=== PATIENT | female | born 1950 | race Hispanic/Latino ===

== ENCOUNTER 2018-01-13 12:18 | Emergency (ER) | payer MEDICARE, MEDICAID ==
[2018-01-13 13:19] LABS: Hemoglobin 12.3 g/dL (12.0-16.0); Mean Corpuscular HGB CONC 32.7 g/dL (32.0-36.0); Mean Corpuscular Hemoglobin 25.9 pg (27.0-31.0); Mean Corpuscular Volume 79.2 fL (78.0-98.0); Mean Platelet Volume 9.1 fL (7.4-10.4); Platelet Count 252 thou/uL (130-400); RBC Distribution Width 16.4 % (11.5-14.5); Red Blood Cell (RBC) Count 4.75 mill/uL (4.20-5.40); White Blood Cell (WBC) Count 13.8 thou/uL (4.8-10.8)
[2018-01-13] MEDS ORDERED: ISOVUE-370 76%-LOCM 1 ML ONE (13:33)
[2018-01-13 13:34] LABS: ALT (SGPT) 51 U/L (8-55); AST (SGOT) 55 U/L (5-34); Albumin 4.1 g/dL (3.4-4.8); Alkaline Phosphatase 84 U/L (40-150); Anion Gap 13 mmol/L (10-20); BUN (Urea Nitrogen) 22 mg/dL (9.8-20.1); Bilirubin, Total 0.5 mg/dL (0.2-1.2); CK (CPK) 53 U/L (29-168); Calc. Creatinine Clearance 0 mL/min (70-130); Calcium 9.1 mg/dL (7.8-10.44); Carbon Dioxide 21 mmol/L (23-31); Chloride 106 mmol/L (98-107); Estimated GFR-MDRD 60; Globulin 4.2 g/dL (2.4-3.5); Glucose 126 mg/dL (80-115); Lipase 21 U/L (8-78); Potassium 4.3 mmol/L (3.5-5.1); Protein, Total 8.3 g/dL (6.0-8.3); Sodium 136 mmol/L (136-145)
[2018-01-13 13:40] LABS: Anisocytosis SLIGHT = 6-15 cells (100X) (0-5/hpf); Eosinophils 1 % (0-10); Large Platelets SLIGHT; Lymphocytes 18 % (21-51); MDiff Complete? YES; Monocytes 3 % (0-10); Neutrophil 77 % (42-75); PLT Morphology Comment Appears Adequate; Polychromasia SLIGHT = 2-3 cells (100X) (0-2/hpf); Reactive Lymphocytes 1 % (0-10)
[2018-01-13 14:05] LABS: Bilirubin Small (Negative); Blood, Urine Negative (Negative); Clarity CLEAR (Clear); Glucose, Urine (Dipstick) Negative (Negative); Leukocyte Small (Negative); Nitrite Negative (Negative); Protein, Urine (Dipstick) Negative (Neg-Trace); Specific Gravity, Urine 1.026 (1.002-1.036); Urobilinogen 0.2 mg/dL (0.2-1.0); pH, Urine 5.5 (5.0-9.0)
[2018-01-13 14:09] LABS: Bacteria/HPF Rare-Few HPF (None Seen); Hyaline Casts/LPF 4-6 HYALINE CAST LPF (0-3 Hyaline); Pathc Cast-AUWi Flag 0.43 (0-2.49); RBC/HPF 0-3 HPF (0-3)
--- NOTE | 2018-01-13 14:32 | CT ---
CT ABDOMEN AND PELVIS WITH IV CONTRAST: Date: 01/13/18 HISTORY: Diarrhea. Abdominal pain. FINDINGS: There are dependent changes at the lung bases. The liver demonstrates fatty infiltration without focal mass or abnormal biliary ductal dilatation. N o calcified gallstones are seen. The spleen, pancreas, adrenal glands, and kidneys are normal. No free air, free fluid, or lymphadenopathy seen in the abdomen or pelvis. There are vascular calcifi cations without evidence of aneurysmal dilatation of the abdominal aorta. Uterus is present. The smal l bowel loops are not abnormally dilated. There are degenerative changes in the spine. The patient is post appendectomy. IMPRESSION: Fatty liver. POS: [facility]
== END 2018-01-13 15:08 | disposition home or self-care (01) ==
LOC: ERS 12:18
DX: R19.7 Diarrhea, unspecified (principal); R10.9 Unspecified abdominal pain; E11.9 Type 2 diabetes mellitus without complications; E03.9 Hypothyroidism, unspecified; I10 Essential (primary) hypertension; F32.9 Major depressive disorder, single episode, unspecified; Z79.899 Other long term (current) drug therapy; Z79.84 Long term (current) use of oral hypoglycemic drugs
CPT/HCPCS: 36415; 74177; 80053; 81003; 81015; 82550; 83605; 83690; 85025; 87077; 87086; 87186

== ENCOUNTER 2019-01-18 11:46 | Emergency (ER) | payer MEDICAID, MEDICARE ==
[2019-01-18] MEDS ORDERED: diphenhydrAMINE 50 MG/ML VIAL ONE (13:09)
[2019-01-18] MEDS ORDERED: Acetaminophen 500 MG TAB ONE (13:09)
[2019-01-18] MEDS ORDERED: Metoclopramide HCl 10 MG/2 ML VIAL ONE (13:09)
--- NOTE | 2019-01-18 13:11 | CT ---
CT OF HEAD NONCONTRAST: COMPARISON: 03/01/2011. INDICATION: Pain. FINDINGS: Stable arachnoid cyst of the right posterior cranial fossa. Mild chronic microvascular ischemic dise ase of the cerebral white matter. No acute intracranial hemorrhage or mass effect. There is some paranasal mucosal thickening. IMPRESSION: Stable head CT. POS: [facility]
== END 2019-01-18 14:40 | disposition home or self-care (01) ==
LOC: ERS 11:46
DX: R51 Headache (principal); E11.9 Type 2 diabetes mellitus without complications; E03.9 Hypothyroidism, unspecified; I10 Essential (primary) hypertension; M19.90 Unspecified osteoarthritis, unspecified site; F32.9 Major depressive disorder, single episode, unspecified; Z79.84 Long term (current) use of oral hypoglycemic drugs; Z79.899 Other long term (current) drug therapy
CPT/HCPCS: 70450; 96361; 96365; 96375; J1200; J2765

== ENCOUNTER 2019-03-08 16:07 | Inpatient (IN) | payer MEDICARE, MEDICAID ==
[~2019-03-08 16:07] MED LIST: ISOVUE-370 76%-LOCM 1 ML ONE
[2019-03-08] MEDS ORDERED: Morphine 4 MG/ML VIAL ONE (17:13)
[2019-03-08 17:24] LABS: Hemoglobin 12.3 g/dL (12.0-16.0); Mean Corpuscular HGB CONC 33.2 g/dL (32.0-36.0); Mean Corpuscular Hemoglobin 26.8 pg (27.0-31.0); Mean Corpuscular Volume 80.6 fL (78.0-98.0); Mean Platelet Volume 9.9 fL (7.4-10.4); Platelet Count 216 thou/uL (130-400); RBC Distribution Width 14.4 % (11.5-14.5); Red Blood Cell (RBC) Count 4.61 mill/uL (4.20-5.40); White Blood Cell (WBC) Count 17.4 thou/uL (4.8-10.8)
[2019-03-08 17:38] LABS: Band 9 % (5-11); Eosinophils 1 % (0-10); Lymphocytes 12 % (21-51); MDiff Complete? YES; Monocytes 3 % (0-10); Neutrophil 75 % (42-75); Platelet Morphology Comment Appears Adequate; RBC Morphology Normal
[2019-03-08 17:39] LABS: ALT (SGPT) 31 U/L (8-55); AST (SGOT) 22 U/L (5-34); Albumin 4.4 g/dL (3.4-4.8); Alkaline Phosphatase 142 U/L (40-110); Anion Gap 14 mmol/L (10-20); BUN (Urea Nitrogen) 13 mg/dL (9.8-20.1); Bilirubin, Total 0.3 mg/dL (0.2-1.2); Calc. Creatinine Clearance 0 mL/min (70-130); Calcium 9.5 mg/dL (7.8-10.44); Carbon Dioxide 24 mmol/L (23-31); Chloride 97 mmol/L (98-107); Estimated GFR-MDRD 60; Globulin 4.2 g/dL (2.4-3.5); Glucose 218 mg/dL (80-115); Lipase 34 U/L (8-78); Potassium 3.9 mmol/L (3.5-5.1); Protein, Total 8.6 g/dL (6.0-8.3); Sodium 131 mmol/L (136-145)
--- NOTE | 2019-03-08 17:41 | RAD ---
Acute abdomen series CLINICAL HISTORY: Pain FINDINGS: No lobar consolidation, or effusion. There is enlargement of cardiac silhouette and pulmona ry vasculature. No free air. Nonspecific bowel gas pattern. There is osseous degenerative change. IMPRESSION: No acute abnormality identified. Evidence of CHF. Correlate clinically Transcribed Date/Time: 03/08/2019 6:10 PM
[2019-03-08] MEDS ORDERED: Acetaminophen 500 MG TAB ONE (18:01)
[2019-03-08 18:12] LABS: Bacteria/HPF 4+ HPF (None Seen); Bilirubin Negative (Negative); Blood, Urine Negative (Negative); Clarity Clear (Clear); Glucose, Urine (Dipstick) Normal (Negative); Leukocyte 75 Leu/uL (Negative); Nitrite Negative (Negative); Protein, Urine (Dipstick) 100 mg/dL (Neg-Trace); RBC/HPF 0-3 HPF (0-3); Urobilinogen Normal mg/dL (Less than 2); WBC/HPF 21-50 HPF (0-3)
[2019-03-08 18:27] LABS: T4 6.2 ug/dL (4.87-11.72); Thyroid Stimulating Hormone 2.7122 uIU/mL (0.35-4.94)
[2019-03-08] MEDS ORDERED: Ketorolac Tromethamine 30 MG/ML VIAL ONE (18:41)
--- NOTE | 2019-03-08 19:17 | CT ---
EXAM: Abdomen and pelvic CT scan with contrast: HISTORY: Pain COMPARISON: None FINDINGS: Bibasilar atelectasis Liver: Hepatic steatosis Gallbladder: Unremarkable. Pancreas: Unremarkable Spleen: Unremarkable. Adrenal glands: Unremarkable. Kidneys: No renal calculus or acute obstruction. No solid or cystic mass. Bowel: Wall prominence of the colon with mild pericolic fat stranding. There is limited assessment of the bowel without enteric contrast. No small bowel obstruction Urinary Bladder: The urinary bladder is unremarkable. Adenopathy: No adenopathy within the abdomen or pelvis. Free Air: No free air. Ascites: No ascites. Scattered atherosclerotic vascular calcification. Osseous structures: No acute osseous abnormalities. IMPRESSION: Findings indicative of colitis although limited by technique. This may relate to infectious inflammat ory or ischemic etiologies. Recommend clinical correlation. Hepatic steatosis Additional details are described above. Transcribed Date/Time: 03/08/2019 7:29 PM
--- NOTE | 2019-03-08 19:33 | ULT ---
Gallbladder ultrasound: Multiple grayscale images of right upper quadrant obtained according to protocol. INDICATION: Pain FINDINGS: Liver: Hepatic steatosis. Gallbladder: Normal Gallbladder wall: Normal. Christian's Sign: Negative Common bile duct is normal. Ascites: None IMPRESSION: Normal gallbladder. Hepatic steatosis
[2019-03-08] MEDS ORDERED: cefTRIAXone\\ROCEPHIN 1 GM VIAL ONE (19:58)
[2019-03-08] MEDS ORDERED: Promethazine HCl 25 MG/ML VIAL ONE (21:20)
[2019-03-08] MEDS ORDERED: Magnesium 2 GM/50 ML BAG (IN WATER) ONE (21:27)
[2019-03-08] MEDS ORDERED: Ondansetron ODT 4 MG TAB SL PRN (22:32)
[2019-03-08] MEDS ORDERED: Ondansetron PF 4 MG/2 ML Vial IVP PRN (22:32)
[2019-03-08] MEDS ORDERED: Sodium Chloride 0.45% 1,000 ML IV SCH (22:32)
[2019-03-08 22:57] VITALS: BMI 38.0
[2019-03-08 23:51] LABS: Lactic Acid 3.8 mmol/L (0.5-2.2)
[2019-03-08] MEDS ORDERED: Magnesium 2 GM/50 ML 2 GM in Premix Bag 1 BAG IVPB SCH (23:59)
[2019-03-09] MEDS ORDERED: Dextrose 5% in Water 1,000 ML IV PRN (02:29)
[2019-03-09] MEDS ORDERED: Dextrose 50% Abboject 50 ML SYRINGE SLOW IVP PRN (02:29)
[2019-03-09] MEDS ORDERED: Insulin Regular 300 UNITS/3 ML VIAL SC PRN (02:29)
[2019-03-09] MEDS ORDERED: Calcium Carbonate 500 MG ChewTAB PO PRN (02:30)
[2019-03-09] MEDS ORDERED: Acetaminophen 325 MG TAB PO PRN (02:30)
[2019-03-09] MEDS ORDERED: Ondansetron PF 4 MG/2 ML Vial IVP PRN (02:30)
[2019-03-09] MEDS ORDERED: Ondansetron ODT 4 MG TAB PO PRN (02:30)
[2019-03-09] MEDS ORDERED: Morphine 2 MG/ML SYRINGE SLOW IVP PRN (02:33)
--- NOTE | 2019-03-09 03:04 | HP ---
The patient was seen and examined on March 08, 2019. PRIMARY CARE PHYSICIAN: [facility]. CHIEF COMPLAINT: Abdominal pain with diarrhea of 2 days' duration. HISTORY OF PRESENT ILLNESS: The patient is a 68-year-old female with hypertension and diabetes mellitus type 2, presented to the emergency room with above complaints. Over the last 2 days, the patient developed fever along with abdominal pain, nausea, vomiting, as well as diarrhea. The abdominal pain was more or less in the lower quadrant, intermittent, moderate to severe in intensity without any aggravating or relieving factor. She had 2 episodes of vomiting which contained food she had eaten. The diarrhea was watery. She had several episodes of diarrhea. She also had fever. The symptoms got worse for which she presented to the emergency room. She took some [id number] "pink medicine" without much relief. In the emergency room, her vital signs showed temperature of 102.7, respirations 24, pulse rate of 112 with a blood pressure of 121/79, O2 saturation 94% on room air. Lactic acid was elevated. She received IV ceftriaxone, magnesium, Phenergan, Toradol, morphine, and Tylenol in the emergency room. PAST MEDICAL HISTORY: 1. Hypertension. 2. Diabetes mellitus, type 2. 3. Obesity with a BMI of 38.1. 4. Hypothyroidism. 5. Depression. PAST SURGICAL HISTORY: 1. Appendectomy. 2. . 3. Renal stone removal. 4. Right knee surgery. ALLERGIES: NO KNOWN DRUG ALLERGIES. CURRENT HOME MEDICATIONS: Family to provide accurate list of medication. She cannot recall any of her home medications. SOCIAL HISTORY: The patient currently lives at home with her family. No current use of smoking, alcohol, or drug use. She is full code and makes her own decision with the help of her family. FAMILY HISTORY: Positive for diabetes mellitus type 2 and hypertension. REVIEW OF SYSTEMS: All other review of systems were reviewed and were found negative. PHYSICAL EXAMINATION: VITAL SIGNS: As discussed above. GENERAL: A 68-year-old female, in mild distress due to abdominal discomfort. HEENT: Head, atraumatic and normocephalic. Sclerae are anicteric. Dry mucous membranes. No oral lesion. NECK: Supple. No JVD appreciated. No carotid bruit. LUNGS: Clear to auscultation bilaterally. No wheezing, rales, or rhonchi. HEART: S1 and S2 present. Regular rate and rhythm. Tachycardic. No rubs or gallops. ABDOMEN: Soft. There is diffuse tenderness mainly in the lower quadrant. No rebound or guarding. No costovertebral angle tenderness. EXTREMITIES: No edema or calf tenderness. NEUROLOGIC: Grossly nonfocal, moves all 4 extremities. PSYCHIATRIC: Alert, awake, oriented x3. SKIN: Warm and dry. LYMPH NODES: No palpable lymph nodes in the neck. Peripheral, vascular, radial pulses palpable bilaterally. MUSCULOSKELETAL: No joint swelling or tenderness. LABORATORY FINDINGS: WBC of 17.4 with hemoglobin 12.3, hematocrit 37.1. Sodium 131, potassium 3.9, chloride 97, bicarb 24, BUN 13, creatinine 0.93, glucose of 218, magnesium 1.0. TSH was normal. Urinalysis showed 21 to 50 wbc's with 4+ bacteria. Influenza screen was negative. CT scan of the abdomen and pelvis by my review showed colitis. Please note that the CT was done without oral contrast. Right upper quadrant ultrasound was negative for acute gallbladder pathology. Lactic acid repeat was 3.8. EKG by my review showed sinus tachycardia with heart rate of [address]-T wave changes. IMPRESSION: 1. Severe sepsis secondary to colitis, suspected infectious. 2. Lactic acidosis secondary to sepsis. 3. Diabetes mellitus, type 2. 4. Hypertension. 5. Hypothyroidism. 6. Depression, mild, stable. 7. Obesity with a BMI of 38.1. 8. Hyponatremia with sodium 131. 9. Chronic kidney disease, stage 2. 10. Hypomagnesemia. 11. Urinary tract infection. PLAN: The patient will be monitored on the medical floor. We will continue IV hydration. Stool workup including C diff will be ordered. We will replace magnesium. We will add Flagyl and ceftriaxone. Consult Gastroenterology. Recheck labs in a.m. Walking program. DVT prophylaxis with SCDs. Hold Lovenox for now due to colitis with potential of GI bleeding. We will also add urine culture due to suspected UTI. Plan of care was discussed with the patient in detail. She stated understanding. The patient will require 2 to 3 days for stabilization. Job ID: [id number]
[2019-03-09] MEDS: metroNIDAZOLE 500 MG in Premix Bag 1 BAG IVPB SCH ×3 (03:23→20:18)
[2019-03-09] MEDS: Sodium Chloride 0.9% 1,000 ML IV SCH ×4 (03:24→23:04)
[2019-03-09] MEDS: Insulin Regular 300 UNITS/3 ML VIAL SC PRN ×2 (05:01→13:09)
[2019-03-09 05:53] LABS: Lactic Acid 2.2 mmol/L (0.5-2.2)
[2019-03-09 06:00] LABS: ALT (SGPT) 20 U/L (8-55); AST (SGOT) 14 U/L (5-34); Albumin 3.2 g/dL (3.4-4.8); Alkaline Phosphatase 74 U/L (40-110); Anion Gap 9 mmol/L (10-20); BUN (Urea Nitrogen) 12 mg/dL (9.8-20.1); Bilirubin, Total 0.3 mg/dL (0.2-1.2); Calc. Creatinine Clearance 100 mL/min (70-130); Calcium 7.7 mg/dL (7.8-10.44); Carbon Dioxide 24 mmol/L (23-31); Chloride 103 mmol/L (98-107); Estimated GFR-MDRD 68; Globulin 3.2 g/dL (2.4-3.5); Glucose 215 mg/dL (80-115); Magnesium 1.9 mg/dL (1.6-2.6); Phosphorus 2.6 mg/dL (2.3-4.7); Potassium 3.9 mmol/L (3.5-5.1); Protein, Total 6.4 g/dL (6.0-8.3); Sodium 132 mmol/L (136-145)
[2019-03-09 06:12] LABS: Band 23 % (5-11); Hemoglobin 10.2 g/dL (12.0-16.0); Lymphocytes 11 % (21-51); MDiff Complete? YES; Mean Corpuscular HGB CONC 33.5 g/dL (32.0-36.0); Mean Corpuscular Hemoglobin 26.7 pg (27.0-31.0); Mean Corpuscular Volume 79.7 fL (78.0-98.0); Mean Platelet Volume 10.2 fL (7.4-10.4); Monocytes 6 % (0-10); Neutrophil 60 % (42-75); Platelet Count 181 thou/uL (130-400); Platelet Morphology Comment Appears Adequate; RBC Distribution Width 14.4 % (11.5-14.5); White Blood Cell (WBC) Count 15.8 thou/uL (4.8-10.8)
[2019-03-09] MEDS: Famotidine 20 MG TAB PO SCH ×2 (08:55→20:19)
[2019-03-09] MEDS: Saccharomyces boulardii 250 MG CAP PO SCH (08:55)
[2019-03-09] MEDS ORDERED: cefTRIAXone\\ROCEPHIN 2 GM in Sodium Chloride 0.9% 100 ML IVPB SCH (09:00)
[2019-03-09] MEDS ORDERED: Sodium Chloride 0.9% 500 ML IV SCH (12:15)
--- NOTE | 2019-03-09 19:07 | PDOC.HOSPP ---
- Subjective Encounter Date: 03/09/19 Encounter Time: 11:30 Subjective: pt up in bed still is having abd pain and diarrhea but has improved since admission - Objective Vital Signs & Weight: Vital Signs (12 hours) Temp Pulse Resp BP Pulse Ox 03/09/19 17:35 94 L 03/09/19 16:32 98.4 F 97 18 96/62 03/09/19 11:26 98.9 F 88 20 98/64 94 L 03/09/19 08:00 92 L 03/09/19 07:39 98.9 F 92 22 H 102/65 Weight Weight 215 lb I&O: 03/08/19 03/09/19 03/10/19 06:59 06:59 06:59 Intake Total 1600 1040 Balance 1600 1040 Result Diagrams: 03/09/19 04:51 03/09/19 04:51 Additional Labs: Accuchecks 03/09/19 03/09/19 11:32 04:03 POC Glucose 219 H 218 H Hospitalist ROS - Review of Systems Respiratory: denies: cough, dry, shortness of breath, hemoptysis, SOB with excertion, pleuritic pain, sputum, wheezing, other Cardiovascular: denies: chest pain, palpitations, orthopnea, paroxysmal noc. dyspnea, edema, light headedness, other Gastrointestinal: reports: abdominal pain, diarrhea - Medication Medications: Active Medications Generic Name Dose Route Start Last Admin Trade Name Freq PRN Reason Stop Dose Admin Famotidine 20 mg 03/09/19 09:00 03/09/19 08:55 Pepcid PO 20 mg BID ASTER Administration Sodium Chloride 1,000 mls @ 150 mls/hr 03/09/19 02:30 03/09/19 17:28 Normal Saline 0.9% IV 1,000 mls .[id number] ASTER Administration Ceftriaxone Sodium 2 gm/ 100 mls @ 200 mls/hr 03/09/19 09:00 03/09/19 08:53 Sodium Chloride IVPB 100 mls DAILY ASTER Administration Metronidazole 500 mg/ Device 100 mls @ 100 mls/hr 03/09/19 04:00 03/09/19 13: 04 IVPB 100 mls 0400,1200,2000 ASTER Administration Insulin Human Regular 0 units 03/09/19 02:29 03/09/19 13:09 Humulin R SC 2 unit .MILD SLIDING SCALE PRN Administration Mild Correctional Scale Saccharomyces Boulardii 250 mg 03/09/19 09:00 03/09/19 08:55 Florastor PO 250 mg DAILY ASTER Administration Sodium Chloride 10 ml 03/09/19 09:00 03/09/19 08:55 Flush - Normal Saline IVF 10 ml Q12HR ASTER Administration Sodium Chloride 10 ml 03/08/19 22:33 03/08/19 22:55 Flush - Normal Saline IVF 10 ml PRN PRN Administration Saline Flush - Exam Neck: negative: supple, symmetric, no JVD, no thyromegaly, no lymphadenopathy, no carotid bruit, JVD Heart: negative: RRR, no murmur, no gallops, no rubs, normal peripheral pulses, irregular, diminshed peripheral pulses, murmur present, II/IV, III/IV Gastrointestinal: soft, normal bowel sounds Gastrointestinal - other findings: mild pain on palpation of abdomen area Hosp A/P (1) Sepsis Code(s): A41.9 - SEPSIS, UNSPECIFIED ORGANISM Status: Acute (2) Colitis Code(s): K52.9 - NONINFECTIVE GASTROENTERITIS AND COLITIS, UNSPECIFIED Status : Acute (3) UTI (urinary tract infection) Status: Acute (4) Diabetes Code(s): E11.9 - TYPE 2 DIABETES MELLITUS WITHOUT COMPLICATIONS Status: Acute - Plan will continue abx for now, will check bnp. gi to see pt. lactic acid improved. will change her abx to cipro and continue flagyl.
[2019-03-09] MEDS: traZODone HCl 50 MG TAB PO SCH (20:19)
[2019-03-09] MEDS ORDERED: Prevnar 13-Val Conj/PF 0.5 ML SYRINGE IM ONE (21:00)
[2019-03-09] MEDS ORDERED: FLU VACC TS2019-20(65YR UP)/PF 180 MCG/0.5 ML SYRINGE IM ONE (21:00)
--- NOTE | 2019-03-10 00:56 | CON ---
DATE OF CONSULTATION: 03/09/2019 REASON FOR CONSULTATION: Abdominal pain, diarrhea and abnormal GI imaging. CONSULTING PROVIDER: Ramírez Dwyer MD. HISTORY OF PRESENT ILLNESS: The patient is a 68-year-old female with past medical history of hypertension, diabetes, hypothyroidism, depression, obesity, osteoarthritis, and nephrolithiasis presenting with complaints of diarrhea and abdominal pain. She states that she was in her usual state of health until 3 days ago when she had the acute onset of diarrhea characterized as having approximately 6-7 liquid bowel movements per day over the last 2 to 3 days with no difficulty with defecation. She denies any associated hematochezia or melena, although she may have had a possible black stool on the 1st day that has not since recurred. She adds that this occurred recently after the ingestion of both Chorizo and watermelon with the appearance of the symptoms within 6 to 8 hours afterwards. This also coincides with the occurrence of increased periumbilical abdominal pain characterized as a "moving type pain" is intermittent and will last for 5 minutes in duration and occurs multiple times during the day and reaches a severity of 5/10. The pain is worse with eating either solids or liquids, not having a bowel movement and increased physical activity and better with having a bowel movement, associated symptoms include headache, subjective fevers and chills, increased neck pain, increased left shoulder pain and nausea and vomiting with nonbloody emesis. With the worsening of her symptoms including diarrhea, it prompted her to seek healthcare assistance at the [facility] ER. She was ultimately admitted to the hospital for workup related to abnormal GI imaging and the diarrhea. Currently, she denies any melena, hematochezia, hematemesis, dysphagia, odynophagia, or weight loss. REVIEW OF SYSTEMS: A 10 category review of systems was obtained with all responses negative except for the pertinent positives as listed in HPI. PAST MEDICAL HISTORY: As per HPI. PAST SURGICAL HISTORY: Appendectomy, right knee surgery, section, and renal stone extraction. FAMILY HISTORY: Denies any GI malignancies. SOCIAL HISTORY: Denies any tobacco, alcohol, or illicit drug use. OUTPATIENT MEDICATIONS: Reviewed although may be incomplete. ALLERGIES: NO KNOWN DRUG ALLERGIES. PHYSICAL EXAMINATION: VITAL SIGNS: Temperature 99.7, pulse 100, blood pressure 108/70, respiratory rate 16, saturating 94% on room air. GENERAL: The patient was lying in bed, in no acute distress. Alert and oriented x4, Tristanian-speaking only. HEENT: Normocephalic, atraumatic. NECK: Supple. No JVD or scleral icterus noted. CARDIOVASCULAR: Regular rate and rhythm with no discernible murmurs, gallops, or rubs. RESPIRATORY: Clear to auscultation bilaterally with no discernible wheezes or rales, although did experience some decreased inspiratory efforts. ABDOMEN: Normoactive bowel sounds, soft, nondistended, tenderness to palpation to both light and deep palpation in all abdominal quadrants. EXTREMITIES: No cyanosis, clubbing, or edema. LABORATORY DATA: CBC with a white blood cell count of 15.8, hemoglobin 10.2, hematocrit 30.3, platelets 181. Chemistry with a sodium of 132, potassium 3.9 chloride 103, CO2 of 24, BUN 12, creatinine 0.84, glucose 215, AST 14, ALT 20, alkaline phosphatase 74, total bilirubin 0.3, albumin 3.2. Infectious stool studies have been negative for Clostridium difficile, Campylobacter and E. coli thus far with stool culture still pending. IMAGING DATA: Right upper quadrant ultrasound obtained on March 08, 2019, showed primarily hepatic steatosis, where as a CT of the abdomen and pelvis on March 08, 2019, showed wall prominence of the colon with mild pericolonic fat stranding that seem to be related to the entire colon, but was limited in terms of its lack of enteric contrast. ASSESSMENT AND PLAN: The patient is a 68-year-old female with past medical history of hypertension, diabetes, hypothyroidism, depression, obesity, osteoarthritis, and renal stones, presenting with nausea, vomiting, fevers, diarrhea and abnormal imaging concerning for infectious colitis. Infectious colitis. The patient is presenting with the acute onset of nausea, vomiting, diarrhea, and abdominal pain shortly after the ingestion of both Chorizo and watermelon with imaging showing wall thickening presumably of the entire colon. On physical examination, she is diffusely tender to palpation and on labs is noted to have an elevated white blood cell count in addition to borderline fever on examination of vital signs. At this point with the acute onset of her diarrhea and infectious etiology is most likely despite the fact that she has had negative stool studies thus far (the sensitivity and specificity of stool studies are approximately 70%). At this time, the differential could include infectious etiology, ischemic colitis (less likely if the entire colon is involved), inflammatory bowel disease, mesenteric ischemia (less likely) and/or GI neoplasm (much less likely, if entire colon is involved). RECOMMENDATIONS: 1. We would continue with more conservative management with IV fluid hydration support and pain control per primary team. 2. We would continue with antibiotic therapy as you are doing for the next 24 hours and if the patient does not continue to show any improvement, would consider both EGD and colonoscopy at that time. 3. No repeat stool studies are indicated at this time given probable sterilization of the stool, now that antibiotics have been given. 4. We would continue with aggressive antiemetic support. 5. We will continue to follow. Please call with any questions. Job ID: [id number]
[2019-03-10] MEDS: metroNIDAZOLE 500 MG in Premix Bag 1 BAG IVPB SCH ×3 (03:29→19:24)
[2019-03-10 06:01] LABS: #Eosinphils 0.2 thou/uL (0.0-0.7); #Lymphocytes 2.5 thou/uL (1.20-3.40); #Monocytes 0.5 thou/uL (0.11-0.59); #Neutrophils 5.9 thou/uL (1.40-6.50); %Basophils 0.2 % (0.0-1.0); %Eosinophils 1.7 % (0.0-10.0); %Lymphocytes 27.7 % (21.0-51.0); %Monocytes 5.6 % (0.0-10.0); %Neutrophils 64.7 % (42.0-75.0); Hemoglobin 9.7 g/dL (12.0-16.0); Mean Corpuscular HGB CONC 33.5 g/dL (32.0-36.0); Mean Corpuscular Volume 80.7 fL (78.0-98.0); Mean Platelet Volume 10.1 fL (7.4-10.4); Platelet Count 159 thou/uL (130-400); RBC Distribution Width 14.5 % (11.5-14.5); White Blood Cell (WBC) Count 9.1 thou/uL (4.8-10.8)
[2019-03-10] MEDS: Sodium Chloride 0.9% 1,000 ML IV SCH ×4 (06:04→19:24)
[2019-03-10 06:24] LABS: ALT (SGPT) 17 U/L (8-55); AST (SGOT) 20 U/L (5-34); Alkaline Phosphatase 66 U/L (40-110); Anion Gap 10 mmol/L (10-20); BUN (Urea Nitrogen) 6 mg/dL (9.8-20.1); Bilirubin, Total 0.2 mg/dL (0.2-1.2); Calc. Creatinine Clearance 112 mL/min (70-130); Calcium 7.3 mg/dL (7.8-10.44); Carbon Dioxide 20 mmol/L (23-31); Chloride 109 mmol/L (98-107); Estimated GFR-MDRD 77; Globulin 3.3 g/dL (2.4-3.5); Glucose 189 mg/dL (80-115); Magnesium 1.6 mg/dL (1.6-2.6); Potassium 3.7 mmol/L (3.5-5.1); Protein, Total 6.3 g/dL (6.0-8.3); Sodium 135 mmol/L (136-145)
[2019-03-10] MEDS: FLUoxetine HCl 20 MG CAP PO SCH (09:07)
[2019-03-10] MEDS: Famotidine 20 MG TAB PO SCH ×2 (09:07→20:56)
[2019-03-10] MEDS: Saccharomyces boulardii 250 MG CAP PO SCH (09:07)
[2019-03-10] MEDS: Insulin Regular 300 UNITS/3 ML VIAL SC PRN (12:51)
--- NOTE | 2019-03-10 13:19 | EKG ---
Test Reason : Blood Pressure : / mmHG Vent. Rate : 121 BPM Atrial Rate : 121 BPM P-R Int : 164 ms QRS Dur : 072 ms QT Int : 296 ms P-R-T Axes : 032 032 042 degrees QTc Int : 420 ms Sinus tachycardia Nonspecific ST abnormality Abnormal ECG Confirmed by ROOSEVELT PACK ([id number]), material expeditor GURDEEP KAMINSKI ([id number]) on 03/10/2019 1:19:31 PM Referred By: Confirmed By:ROOSEVELT PACK
--- NOTE | 2019-03-10 14:52 | PDOC.HOSPP ---
- Subjective Encounter Date: 03/10/19 Encounter Time: 10:00 Subjective: Pt seen for followup re: sepsis. Had four loose stoold earlier today, none in last few hours. No fevers. - Objective Vital Signs & Weight: Vital Signs (12 hours) Temp Pulse Resp BP BP BP Pulse Ox 03/10/19 08:00 93 L 03/10/19 07:22 98.5 F 88 18 131/83 93 L 03/10/19 04:57 98.5 F 89 16 119/76 108/61 129/78 92 L Weight Weight 215 lb I&O: 03/09/19 03/10/19 03/11/19 06:59 06:59 06:59 Intake Total 1600 3390 540 Balance 1600 3390 540 Result Diagrams: 03/10/19 05:10 03/10/19 05:10 Additional Labs: Accuchecks 03/10/19 03/10/19 03/09/19 11:31 04:48 19:22 POC Glucose 200 H 178 H 196 H 03/09/19 16:38 POC Glucose 185 H Labs and MARs reviewed by me. Hospitalist ROS - Review of Systems Respiratory: denies: cough, dry, shortness of breath, hemoptysis, SOB with excertion, pleuritic pain, sputum, wheezing Cardiovascular: denies: chest pain, palpitations, orthopnea, paroxysmal noc. dyspnea, edema, light headedness - Medication Medications: Active Medications Generic Name Dose Route Start Last Admin Trade Name Freq PRN Reason Stop Dose Admin Acetaminophen 650 mg 03/09/19 02:30 03/09/19 20:19 Tylenol PO 650 mg Q4H PRN Administration Headache/Fever/Mild Pain (1-3) Famotidine 20 mg 03/09/19 09:00 03/10/19 09:07 Pepcid PO 20 mg BID ASTER Administration Fluoxetine HCl 20 mg 03/10/19 09:00 03/10/19 09:07 Prozac PO 20 mg DAILY ASTER Administration Metronidazole 500 mg/ Device 100 mls @ 100 mls/hr 03/09/19 04:00 03/10/19 13: 07 IVPB 100 mls 0400,1200,2000 ASTER Administration Ciprofloxacin/Dextrose 400 mg/ 200 mls @ 200 mls/hr 03/09/19 21:00 03/10/19 09:06 Device IVPB 200 mls Q12HR ASTER Administration Sodium Chloride 1,000 mls @ 100 mls/hr 03/10/19 10:15 03/10/19 10:55 Normal Saline 0.9% IV Not Given .Q10H ASTER Insulin Human Regular 0 units 03/09/19 02:29 03/10/19 12:51 Humulin R SC 2 unit .MILD SLIDING SCALE PRN Administration Mild Correctional Scale Saccharomyces Boulardii 250 mg 03/09/19 09:00 03/10/19 09:07 Florastor PO 250 mg DAILY ASTER Administration Sodium Chloride 10 ml 03/09/19 09:00 03/10/19 09:07 Flush - Normal Saline IVF Not Given Q12HR ASTER Sodium Chloride 10 ml 03/08/19 22:33 03/08/19 22:55 Flush - Normal Saline IVF 10 ml PRN PRN Administration Saline Flush Trazodone HCl 100 mg 03/09/19 21:00 03/09/19 20:19 Desyrel PO 100 mg HS ASTER Administration - Exam General - other findings: Obese Eye: anicteric sclera ENT: moist mucosa Neck: supple Heart: RRR Respiratory: CTAB Gastrointestinal: soft, non-tender Extremities: no clubbing Skin: no rashes Psychiatric: normal affect, normal behavior Hosp A/P (1) Sepsis Code(s): A41.9 - SEPSIS, UNSPECIFIED ORGANISM Status: Acute (2) Colitis Code(s): K52.9 - NONINFECTIVE GASTROENTERITIS AND COLITIS, UNSPECIFIED Status : Acute (3) Diabetes Code(s): E11.9 - TYPE 2 DIABETES MELLITUS WITHOUT COMPLICATIONS Status: Chronic - Plan plan discussed w/ family, continue antibiotics, out of bed/ambulate Clinically improving, advance diet.
[2019-03-10] MEDS: traZODone HCl 50 MG TAB PO SCH (20:57)
[2019-03-10] MEDS ORDERED: Fluticasone Propionate Nasal Spray 16 gm Bottle NASAL PRN (21:39)
--- NOTE | 2019-03-11 01:17 | PRG ---
DATE OF SERVICE: 03/10/2019 REASON FOR CONSULTATION: Abdominal pain, diarrhea, and abnormal GI imaging. SUBJECTIVE: The patient did well overnight with no acute events or problems. She did have 2 episodes of diarrhea last night and 2 additional episodes of diarrhea this morning, but since this afternoon has not had any additional bowel movements at all. She also states that her abdominal pain has significantly improved when compared to the day prior and she denies any additional episodes of nausea or vomiting. Currently, she denies any nausea, vomiting, fevers, chills, hematemesis, melena, or hematochezia. OBJECTIVE: VITAL SIGNS: Temperature 98.5, pulse 91, blood pressure 146/81, respiratory rate 19, saturating 95% on room air. GENERAL: The patient was lying in bed, in no acute distress. Alert and oriented x4. CARDIOVASCULAR: Regular rate and rhythm. RESPIRATORY: Clear to auscultation bilaterally. ABDOMEN: Normoactive bowel sounds. Soft, nondistended, mild tenderness to palpation in the periumbilical region. EXTREMITIES: No cyanosis, clubbing, or edema. LABORATORY DATA: CBC with a white blood cell count of 9.1, hemoglobin 9.7, hematocrit 29.1, platelets 159. Chemistry with a sodium of 135, potassium 3.7, chloride 109, CO2 of 20, BUN 6, creatinine 0.75, glucose 200. IMAGING DATA: No current GI imaging is available for review. ASSESSMENT AND PLAN: The patient is a 68-year-old female, with past medical history of hypertension, diabetes, hypothyroidism, depression, obesity, osteoarthritis, and renal stones, presenting with nausea, vomiting, fever, diarrhea, and abnormal GI imaging concerning for infectious colitis. Infectious colitis. The patient initially presented with acute onset of nausea, vomiting, diarrhea, abdominal pain, and fever after the ingestion of chorizo and watermelon as an outpatient. She began to have significant diarrhea characterized as approximately 7-8 liquid bowel movements per day which ultimately brought her to seek healthcare assistance at . During the course of this hospitalization , she has been responding well to antibiotic therapy for a possible infectious etiology and has had a significant reduction in the number of bowel movements she had, having approximately 4 bowel movements over the last 24 hours. She has also had a significant reduction in her abdominal pain as well. At this time, an infectious etiology is a bit more likely including a bacterial or viral origin, although with the administration of antibiotics, it is going to be difficult to determine the specific pathogen and tailor antibiotics accordingly. RECOMMENDATIONS: 1. We would continue with more conservative management with IV fluid hydration and pain control per Primary Team. 2. We would continue with antibiotic therapy and consider changing the patient to oral ciprofloxacin and Flagyl in anticipation of discharge. Hopefully stool culture will help narrow spectrum. 3. Continue with an antiemetic support. 4. No endoscopic evaluation is indicated at this time. We will continue to follow. Please call with any questions. Job ID: [id number] [facility]
[2019-03-11] MEDS: metroNIDAZOLE 500 MG in Premix Bag 1 BAG IVPB SCH (03:53)
[2019-03-11] MEDS: Insulin Regular 300 UNITS/3 ML VIAL SC PRN ×2 (06:52→11:49)
[2019-03-11] MEDS: Saccharomyces boulardii 250 MG CAP PO SCH (08:44)
[2019-03-11] MEDS: Famotidine 20 MG TAB PO SCH (08:44)
[2019-03-11] MEDS: Sodium Chloride 0.9% 1,000 ML IV SCH (08:45)
[2019-03-11] MEDS: FLUoxetine HCl 20 MG CAP PO SCH (08:45)
[2019-03-11] MEDS ORDERED: Ciprofloxacin 500 MG TAB PO SCH ×2 (11:15→20:00)
[2019-03-11 13:11] VITALS: BP 131/83; TEMP 98.7
--- NOTE | 2019-03-11 16:25 | DIS ---
DATE OF ADMISSION: 03/08/2019 DATE OF DISCHARGE: 03/11/2019 PRIMARY CARE PROVIDER: [facility]. DISCHARGE DIAGNOSES: 1. Severe sepsis. 2. Severe sepsis secondary to colitis. 3. Shigella sonnei colitis. 4. Escherichia coli urinary tract infection. 5. Hyponatremia. CONDITION OF PATIENT ON THE DAY OF DISCHARGE: Stable. I assessed Ms. Dragan Melara on the day of discharge. She denies any chest pain or shortness of breath. Vital signs are stable. S1 and S2 are heard, regular. Lungs are clear to auscultation bilaterally. DISCHARGE MEDICATIONS: She has been started on ciprofloxacin 500 mg 2 times a day for 5 more days. Otherwise, no change was made to her pre-admission home medications, which include; 1. Prozac 20 mg daily. 2. Glipizide 5 mg 2 times a day. 3. Levothyroxine 300 mcg daily. 4. Metformin 1000 mg 2 times a day. 5. Trazodone 100 mg at bedtime. 6. Lisinopril 5 mg daily. CONSULTATIONS DURING THIS HOSPITALIZATION: Gastroenterology, Dr. Cowart. POSTDISCHARGE FOLLOWUP APPOINTMENTS: The patient is advised to follow up with primary care provider in 3 to 5 days time. HOSPITAL COURSE: Ms. Dragan Melara is a pleasant 68-year-old lady who was admitted to [facility] on March 09, 2019, for severe sepsis. Please refer to Dr. Dwyer's history and physical note dated March 09, 2019, for further details. She improved with intravenous fluids and intravenous antibiotics. Stool culture grew Shigella sonnei that is resistant to Bactrim, but sensitive to ampicillin. Urine cultures grew pansensitive Escherichia coli. She has been cleared for discharge by Gastroenterology service. She is being discharged home on ciprofloxacin 500 mg 2 times a day for 5 more days. Many thanks for allowing me to participate in your patient's care. Please feel free to contact me with any questions or concerns. DISCHARGE DESTINATION: Home. TIME SPENT: Total amount of time spent coordinating this discharge: 32 minutes. The patient is also advised to follow up with primary care provider for final blood culture reports. These are negative after 48 hours, at the time of this dictation. Job ID: [id number]
== END 2019-03-11 13:08 | disposition home or self-care (01) | DRG 371 ==
LOC: ERS 16:07 → T4-A 21:11
PROVIDERS: ADMIT Internal Medicine; ATTEND Internal Medicine
DX: A03.3 Shigellosis due to Shigella sonnei (principal); R65.20 Severe sepsis without septic shock; N39.0 Urinary tract infection, site not specified; E87.1 Hypo-osmolality and hyponatremia; E87.2 Acidosis; F32.0 Major depressive disorder, single episode, mild; E03.9 Hypothyroidism, unspecified; F32.9 Major depressive disorder, single episode, unspecified; E66.9 Obesity, unspecified; B96.20 Unspecified Escherichia coli [E. coli] as the cause of diseases classified elsewhere; I12.9 Hypertensive chronic kidney disease with stage 1 through stage 4 chronic kidney disease, or unspecified chronic kidney disease; E11.22 Type 2 diabetes mellitus with diabetic chronic kidney disease; N18.2 Chronic kidney disease, stage 2 (mild); M19.90 Unspecified osteoarthritis, unspecified site; E83.42 Hypomagnesemia; Z90.49 Acquired absence of other specified parts of digestive tract; Z87.442 Personal history of urinary calculi; Z68.38 Body mass index [BMI] 38.0-38.9, adult; Z79.4 Long term (current) use of insulin
CPT/HCPCS: 36415; 36416; 74022; 74177; 76705; 80053; 81003; 81015; 83605; 83630; 83690; 83735; 83880; 84100; 84436; 84443; 84484; 85025; 87040; 87045; 87046; 87077; 87086; 87186; 87324; 87328; 87329; 87427; 87449; 87804; 93005; 96361; 96365; 96367; 96375; J0696; J0744; J1815; J1885; J2270; J2550; J3475; J3490

== ENCOUNTER 2020-01-19 15:35 | Observation (INO) | payer MEDICARE, OTHER ==
[~2020-01-19 15:35] MED LIST changes: -ISOVUE-370 76%-LOCM 1 ML ONE; +Iopamidol-370 76% 500 ML 1 ML ONE; +Prevnar 13-Val Conj/PF 0.5 ML SYRINGE IM ONE
[2020-01-19] MEDS ORDERED: Acetaminophen 500 MG TAB ONE (16:18)
[2020-01-19] MEDS ORDERED: Azithromycin 500 MG VIAL ONE (16:18)
[2020-01-19] MEDS ORDERED: CEFAZOLIN 1 GM VIAL ONE (16:18)
--- NOTE | 2020-01-19 16:43 | RAD ---
PORTABLE CHEST: 01/19/20 PROVIDED CLINICAL HISTORY: Headache and dizziness. FINDINGS: Comparison 07/12/14. Evaluation is limited by patient body habitus. The cardiac silhouette appears enlarged, which may be at least partially on the basis of portable technique. No focal consolidation, pleural fluid or pneum othorax apparent. IMPRESSION: No evidence for an acute cardiopulmonary process. POS: MITZI
[2020-01-19 17:00] LABS: #Basophils 0.1 thou/uL (0.0-0.2); #Eosinphils 0.2 thou/uL (0.0-0.7); #Lymphocytes 3.4 thou/uL (1.20-3.40); #Monocytes 0.6 thou/uL (0.11-0.59); #Neutrophils 5.4 thou/uL (1.40-6.50); %Basophils 0.7 % (0.0-1.0); %Eosinophils 1.6 % (0.0-10.0); %Lymphocytes 35.5 % (21.0-51.0); %Monocytes 5.9 % (0.0-10.0); %Neutrophils 56.3 % (42.0-75.0); Hemoglobin 11.3 g/dL (12.0-16.0); Mean Corpuscular HGB CONC 31.3 g/dL (32.0-36.0); Mean Corpuscular Hemoglobin 24.3 pg (27.0-31.0); Mean Corpuscular Volume 77.6 fL (78.0-98.0); Mean Platelet Volume 11.4 fL (7.4-10.4); Platelet Count 244 thou/uL (130-400); Red Blood Cell (RBC) Count 4.67 mill/uL (4.20-5.40); White Blood Cell (WBC) Count 9.5 thou/uL (4.8-10.8)
[2020-01-19 17:20] LABS: ALT (SGPT) 51 U/L (8-55); AST (SGOT) 48 U/L (5-34); Albumin 4.2 g/dL (3.4-4.8); Alkaline Phosphatase 136 U/L (40-110); Anion Gap 16 mmol/L (10-20); BUN (Urea Nitrogen) 13 mg/dL (9.8-20.1); Bilirubin, Total 0.4 mg/dL (0.2-1.2); Calc. Creatinine Clearance 0 mL/min (70-130); Calcium 9.2 mg/dL (7.8-10.44); Carbon Dioxide 22 mmol/L (23-31); Chloride 102 mmol/L (98-107); Estimated GFR-MDRD 67; Globulin 3.8 g/dL (2.4-3.5); Glucose 267 mg/dL (80-115); Magnesium 1.2 mg/dL (1.6-2.6); Phosphorus 2.5 mg/dL (2.3-4.7); Potassium 3.9 mmol/L (3.5-5.1); Sodium 136 mmol/L (136-145)
[2020-01-19] MEDS ORDERED: Magnesium Sulfate 2 GM in Sodium Chloride 0.9% 100 ML IVPB SCH (18:00)
[2020-01-19] MEDS ORDERED: Magnesium 2 GM/50 ML 2 GM in Premix Bag 1 BAG IVPB SCH (18:15)
[2020-01-19 18:31] LABS: Bacteria/HPF None Seen HPF (None Seen); Bilirubin Negative (Negative); Blood, Urine Negative (Negative); Clarity Clear (Clear); Glucose, Urine (Dipstick) 300 mg/dL (Negative); Ketone, Urine 10 mg/dL (Negative); Leukocyte 75 Leu/uL (Negative); Nitrite Negative (Negative); Protein, Urine (Dipstick) 30 mg/dL (Neg-Trace); RBC/HPF 0-3 HPF (0-3); Specific Gravity, Urine 1.032 (1.002-1.036); Squamous Epithelial 0-3 HPF (0-3); Urobilinogen Normal mg/dL (Less than 2); pH, Urine 5.5 (5.0-9.0)
[2020-01-19] MEDS ORDERED: Ondansetron PF 4 MG/2 ML Vial ONE (18:56)
[2020-01-19 20:07] LABS: Lactic Acid 3.8 mmol/L (0.5-2.2)
[2020-01-19] MEDS ORDERED: Acetaminophen 650 MG Suppository PR PRN (20:16)
[2020-01-19 20:35] LABS: SARS-CoV-2 NAA Rapid Test Not Detected (NotDetected)
[2020-01-19] MEDS ORDERED: guaiFENesin 200 MG TAB PO PRN (21:06)
[2020-01-19] MEDS ORDERED: HumaLOG 300 UNITS/3 ML VIAL SC PRN (21:26)
[2020-01-19] MEDS ORDERED: Dextrose 5% in Water 1,000 ML IV PRN (21:26)
[2020-01-19] MEDS ORDERED: Dextrose 50% Abboject 50 ML SYRINGE SLOW IVP PRN (21:26)
[2020-01-19 21:48] VITALS: BMI 37.9
[2020-01-19] MEDS: Acetaminophen 325 MG TAB PO PRN (22:03)
[2020-01-19] MEDS: Benzonatate 100 MG CAP PO PRN (22:03)
[2020-01-19] MEDS: Sodium Chloride 0.9% 1,000 ML IV SCH (22:03)
--- NOTE | 2020-01-19 22:17 | CT ---
CT PULMONARY ANGIOGRAM WITH IV CONTRAST AND 3D MIP RECONSTRUCTIONS: Date: 01/19/2020 PROVIDED CLINICAL HISTORY: Cough. FINDINGS: The heart, pericardium, and great vessels demonstrate an unremarkable CT appearance. There is no evid ence for central or segmental pulmonary embolus. The airway appears patent and of normal caliber. The re is no focal consolidation. Scattered areas of nonspecific ground-glass opacity are seen. The visualized portions of the upper abdomen demonstrate no significant abnormality. IMPRESSION: 1. No evidence for central or segmental pulmonary embolus. 2. Nonspecific patchy bilateral ground-glass opacity, which can be seen in the setting of COVID pneu monia. POS: MITZI
--- NOTE | 2020-01-19 23:44 | PDOC.HHP ---
Hospitalist HPI - History of Present Illness SOB and cough History of Present Illness: Patient is a 69-year-old woman, Irish-speaking only, who was recently diagnosed with COVID-19 Pneumonia nearly 2 months ago who presents with complaints of a persisting cough and shortness of breath. She reports the cough is constant and productive for white sputum. Denies any hemoptysis or purulent sputum. Has not had any fevers or chills but does report generalized body aches. States she feels she never recovered fully. Complains of having shortness of breath and had been prescribed as needed home O2 by her primary care physician. She uses it only throughout the day when she feels breathless. Does not require any O2 at bedtime or while sleeping. She also reports having high glucose readings at home since being sick. She apparently had a visitor from [place] on December 30 that also was COVID positive therefore patient became alarmed that she was becoming reinfected with COVID. She denies having any history of asthma or COPD. ROS: Patient complains of nausea but denies any vomiting. Reports frequent coughing fits exacerbated by deep inspiration. Denies any chest pain but does report generalized aches throughout her muscles thorax and abdomen from the frequent coughing fits. All other review of systems apart from those mentioned above in HPI are negative. ED COURSE: In the ED she had an EKG that showed normal sinus rhythm with a heart rate of 96. Chest x-ray was done showing no acute cardiopulmonary process She received 1 L of normal saline IV. For her nausea she received 4 mg of Zofran. She was started on on IV antibiotics with azithromycin and cefazolin for presumed pneumonia. For her generalized aches she was given Tylenol 1000 mg. PAST MEDICAL HISTORY: CKD History of kidney stones Type 2 diabetes myelitis Hypothyroidism Hypertension Arthritis Depression PAST SURGICAL HISTORY: Right knee surgery Kidney stone removal Appendectomy x1 SOCIAL HISTORY: Patient lives at home with her family. She is fully independent and denies any history of tobacco use alcohol consumption or illicit drug use. FAMILY HISTORY: Noncontributory ALLERGIES: No known drug allergies CURRENT MEDICATIONS: Glipizide 5 mg p.o. twice daily Naproxen 500 mg Lisinopril 5 mg p.o. daily Levothyroxine 300 mcg p.o. daily Metformin 1000 mg p.o. twice daily Trazodone 100 mg p.o. at bedtime Hospitalist ROS - Medication Medications: Active Medications Generic Name Dose Route Start Last Admin Trade Name Danieleq PRN Reason Stop Dose Admin Acetaminophen 650 mg 01/19/20 20:16 01/19/20 22:03 Tylenol PO 650 mg Q4H PRN Administration Headache/Fever/Mild Pain (1-3) Benzonatate 100 mg 01/19/20 21:05 01/19/20 22:03 Tessalon PO 100 mg TIDPRN PRN Administration Cough Sodium Chloride 1,000 mls @ 50 mls/hr 01/19/20 21:30 01/19/20 22:03 Normal Saline 0.9% IV 1,000 mls .Q20H ASTER Administration Insulin Human Lispro 0 units 01/19/20 21:26 01/19/20 22:22 Humalog SC 3 unit .BEDTIME SLIDING SC PRN Administration Bedtime Correctional Scale - Exam General Appearance: NAD, ill appearing General - other findings: Temp 98.2, HR 92, RR 20, O2 sat 95% on room air, BP 114/73 Eye: PERRL, anicteric sclera ENT: normocephalic atraumatic Neck: supple, no lymphadenopathy Heart: RRR, no murmur, no gallops, normal peripheral pulses Respiratory: CTAB, no wheezes, no rales, no tachypnea Respiratory - other findings: deep inspiration causes forceful coughing fits Gastrointestinal: soft (obese), non-distended, no guarding, no rigidity, tender to palpation (mild generalized discomfort with palpation due to coughing) Extremities: no edema Skin: normal turgor, no lesions, no rashes Neurological: cranial nerve grossly intact Musculoskeletal: normal tone, normal strength, no muscle wasting Psychiatric: normal affect, normal behavior, A&O x 3 Hospitalist Results - Labs Result Diagrams: 01/19/20 16:30 01/19/20 16:30 Lab results: WBC 9.5 thou/uL (4.8-10.8) 01/19/20 16:30 Hgb 11.3 g/dL (12.0-16.0) L 01/19/20 16:30 Hct 36.2 % (36.0-47.0) 01/19/20 16:30 MCV 77.6 fL (78.0-98.0) L 01/19/20 16:30 Plt Count 244 thou/uL (130-400) 01/19/20 16:30 Neutrophils % 56.3 % (42.0-75.0) 01/19/20 16:30 Sodium 136 mmol/L (136-145) 01/19/20 16:30 Potassium 3.9 mmol/L (3.5-5.1) 01/19/20 16:30 Chloride 102 mmol/L (98-107) 01/19/20 16:30 Carbon Dioxide 22 mmol/L (23-31) L 01/19/20 16:30 BUN 13 mg/dL (9.8-20.1) 01/19/20 16:30 Creatinine 0.84 mg/dL (0.6-1.1) 01/19/20 16:30 Glucose 267 mg/dL (80-115) H 01/19/20 16:30 Lactic Acid 3.8 mmol/L (0.5-2.2) H 01/19/20 19:42 Calcium 9.2 mg/dL (7.8-10.44) 01/19/20 16:30 Total Bilirubin 0.4 mg/dL (0.2-1.2) 01/19/20 16:30 AST 48 U/L (5-34) H 01/19/20 16:30 ALT 51 U/L (8-55) 01/19/20 16:30 Alkaline Phosphatase 136 U/L (40-110) H 01/19/20 16:30 Troponin I Less than 0.010 ng/mL (< 0.028) 01/19/20 16:30 B-Natriuretic Peptide 12.6 pg/mL (0-100) 01/19/20 16:30 Serum Total Protein 8.0 g/dL (6.0-8.3) 01/19/20 16:30 Albumin 4.2 g/dL (3.4-4.8) 01/19/20 16:30 Urine Ketones 10 mg/dL (Negative) A 01/19/20 18:11 Urine Blood Negative (Negative) 01/19/20 18:11 Urine Nitrite Negative (Negative) 01/19/20 18:11 Ur Leukocyte Esterase 75 Justine/uL (Negative) A 01/19/20 18:11 Urine RBC 0-3 HPF (0-3) 01/19/20 18:11 Urine WBC 7-10 HPF (0-3) A 01/19/20 18:11 Ur Squamous Epith Cells 0-3 HPF (0-3) 01/19/20 18:11 Urine Bacteria None Seen HPF (None Seen) 01/19/20 18:11 Hospitalist H&P A/P - Problem (1) Cough Code(s): R05 - COUGH Status: Acute (2) Shortness of breath Code(s): R06.02 - SHORTNESS OF BREATH Status: Acute (3) Pneumonia due to COVID-19 virus Code(s): U07.1 - COVID-19; J12.89 - OTHER VIRAL PNEUMONIA Status: Acute (4) Nausea Code(s): R11.0 - NAUSEA Status: Acute (5) Hypomagnesemia Code(s): E83.42 - HYPOMAGNESEMIA Status: Acute (6) Lactic acid acidosis Code(s): E87.2 - ACIDOSIS Status: Acute (7) Hypertension Code(s): I10 - ESSENTIAL (PRIMARY) HYPERTENSION Status: Chronic (8) Hypothyroidism Code(s): E03.9 - HYPOTHYROIDISM, UNSPECIFIED Status: Chronic (9) Obesity Code(s): E66.9 - OBESITY, UNSPECIFIED Status: Chronic (10) Diabetes Code(s): E11.9 - TYPE 2 DIABETES MELLITUS WITHOUT COMPLICATIONS Status: Chronic - Plan Plan: Monitor O2 sats. D-dimer borderline elevated. Given SOB, will obtain CTA. Gentle IV hydration. Repeat lactic acid. Replace magnesium and continue to monitor electrolytes. Tessalon and guiafenesin. Monitor glucose and initiate sliding scale. Monitor BP. Resume home medications as appropriate once verified. FULL CODE STATUS. Discussed with attending who agrees with plan as above.
[2020-01-20 02:51] LABS: Bacteria/HPF None Seen HPF (None Seen); Bilirubin Negative (Negative); Blood, Urine Negative (Negative); Clarity Clear (Clear); Glucose, Urine (Dipstick) Normal (Negative); Ketone, Urine Negative (Negative); Leukocyte 75 Leu/uL (Negative); Nitrite Negative (Negative); Protein, Urine (Dipstick) 10 mg/dL (Neg-Trace); Urobilinogen Normal mg/dL (Less than 2); pH, Urine 5.5 (5.0-9.0)
[2020-01-20 02:56] LABS: Urine Culture Reflex No No
[2020-01-20 03:03] LABS: Specific Gravity, Urine 1.051 (1.002-1.036)
[2020-01-20 06:21] LABS: Anion Gap 10 mmol/L (10-20); BUN (Urea Nitrogen) 12 mg/dL (9.8-20.1); Calc. Creatinine Clearance 113 mL/min (70-130); Carbon Dioxide 26 mmol/L (23-31); Chloride 104 mmol/L (98-107); Estimated GFR-MDRD 79; Glucose 192 mg/dL (80-115); Potassium 3.8 mmol/L (3.5-5.1); Sodium 136 mmol/L (136-145)
[2020-01-20] MEDS: HumaLOG 300 UNITS/3 ML VIAL SC PRN ×3 (06:30→17:44)
[2020-01-20 07:03] LABS: #Basophils 0.1 thou/uL (0.0-0.2); #Eosinphils 0.1 thou/uL (0.0-0.7); #Lymphocytes 3.1 thou/uL (1.20-3.40); #Monocytes 0.6 thou/uL (0.11-0.59); #Neutrophils 4.3 thou/uL (1.40-6.50); %Basophils 0.9 % (0.0-1.0); %Eosinophils 1.6 % (0.0-10.0); %Lymphocytes 38.2 % (21.0-51.0); %Monocytes 7.1 % (0.0-10.0); %Neutrophils 52.2 % (42.0-75.0); Hemoglobin 9.8 g/dL (12.0-16.0); Mean Corpuscular HGB CONC 32.1 g/dL (32.0-36.0); Mean Platelet Volume 11.2 fL (7.4-10.4); Platelet Count 208 thou/uL (130-400); Red Blood Cell (RBC) Count 3.93 mill/uL (4.20-5.40); White Blood Cell (WBC) Count 8.1 thou/uL (4.8-10.8)
[2020-01-20] MEDS: Acetaminophen 325 MG TAB PO PRN ×2 (08:41→19:31)
[2020-01-20] MEDS: Benzonatate 100 MG CAP PO PRN (08:46)
[2020-01-20] MEDS ORDERED: Zinc Sulfate 220 MG CAP PO SCH (09:00)
[2020-01-20] MEDS ORDERED: Ascorbic Acid 500 mg Chewable Tablet PO SCH (09:00)
[2020-01-20 14:30] LABS: Lactic Acid 2.3 mmol/L (0.5-2.2)
[2020-01-20] MEDS ORDERED: cefTRIAXone\\ROCEPHIN 1 GM in Sodium Chloride 0.9% 100 ML IVPB SCH (15:00)
[2020-01-20] MEDS ORDERED: Azithromycin 500 MG in Sodium Chloride 0.9% 250 ML 250 ML IVPB SCH ×2 (16:00)
[2020-01-20] MEDS: Sodium Chloride 0.9% 1,000 ML IV SCH (19:21)
[2020-01-20 19:38] VITALS: BP 148/73; TEMP 98.4
--- NOTE | 2020-01-20 19:47 | DIS ---
DATE OF ADMISSION: 01/19/2020 DATE OF DISCHARGE: 01/20/2020 DISCHARGE DIAGNOSES: 1. Cough. 2. History of COVID pneumonia. 3. Diabetes. 4. Hypertension. 5. Arthritis. 6. Depression. 7. Chronic kidney disease. HOSPITAL COURSE: Ms. Dragan Melara is a 69-year-old lady, who was recently diagnosed with COVID-19 two months ago. She presented to emergency room complaining with persistent cough and shortness of breath. Cough was content and productive of white sputum. She denied any hemoptysis or fevers or chills. Upon presentation , the patient was admitted for further evaluation. She was empirically started on antibiotics and was admitted. CTA of the chest did not show any pulmonary embolus and showed ground glass opacities consistent with a history of COVID pneumonia. The patient had a repeat COVID test that turned out to be negative. Lab data was normal with no abnormalities, showing any signs of any acute infection. The patient was evaluated by Infectious Disease and did not feel that this is an acute COVID infection. It is also noted that she is on lisinopril, which can cause a cough. At this time, the patient is stable and will be discharged home. Her lisinopril will be discontinued. She will be given antitussive. The patient will follow up with her PCP in the next week if her cough persists. Communication with the patient was made via a perforator operator oil well. PHYSICAL EXAMINATION: GENERAL: Elderly lady in no acute distress. HEENT: No pale. No jaundice. Pupils are equal and reactive to light and accommodation. Extraocular movements are intact. NECK: Supple. No JVD. No thyromegaly. No bruits. CARDIOVASCULAR SYSTEM: First and second heart sounds are heard. No murmurs, rubs, or gallops. RESPIRATORY SYSTEM: Good air entry bilaterally. No crackles. No rales. No wheezes. ABDOMEN: Bowel sounds are present. Nondistended. Nontender. EXTREMITIES: No cyanosis. No clubbing. No edema. LABORATORY DATA: Lab data is noted. FOLLOWUP: The patient is to follow up with her PCP in the next 2 weeks. INSTRUCTIONS: She was advised to discontinue her lisinopril. Discharge plan was discussed with the patient. Job ID: [id number] [facility]
--- NOTE | 2020-01-20 22:12 | CON ---
DATE OF CONSULTATION: 01/20/2020 REASON FOR CONSULTATION: Cough with recent documented COVID infection. HISTORY OF PRESENT ILLNESS: A 69-year-old history of type 2 diabetes, obesity, nephrolithiasis, and hypertension, who was admitted to [facility] on December 02 with documented COVID pneumonia. She had a chest x-ray, which demonstrated bibasilar infiltrates. She was saturating 88 to 89 on room air and would go up to 93 on 2 L nasal cannula. The patient remained in the hospital about 2 to 3 days , was treated with dexamethasone and sent home on oxygen supplementation. She remained home using oxygen and progressively decreased frequency of O2 utilization in the home setting and about at the beginning of December, stopped using it altogether. Around December 30, she was she was feeling better, is still not back to baseline, having coughing spells intermittently and with some dyspnea. She was then visited by a relative or friend from [place] and she remained in the house without wearing masks for about 2 hours. This person subsequently was diagnosed with a COVID infection in [facility]. The patient over the past week or so has noticed worsening coughing spells and some dyspnea, so she was concerned and was brought in to the emergency room. On arrival, her BP was 140/82, pulse 101, respirations 26, and temperature 98.3 with an O2 saturation 98% on room air. She was coughing intermittently, did not appear in any acute distress. She was alert and oriented. The exam showed clear lungs to auscultation and percussion. Heart exam was normal. Abdomen soft. No bladder distention. No edema. Initial findings included sodium 136, creatinine 0.73 and a WBC count 9.5, hemoglobin 11.3, and platelets 244 with normal differential. Total lymphocyte count was 3.4. Creatinine 0.73. CRP was 1.41. Ferritin 25. Urinalysis with 7 to 10 wbc's. Repeat COVID RNA PCR was negative on 01/[address] showed ground-glass opacities. Currently, Ms. Archibald is still coughing intermittently, she is feeling well though other than that. She has a good appetite and the sensation of taste is not the same as before. No headaches. No chest pain. No abdominal pain or diarrhea. No genitourinary symptoms. No joint symptoms or neurological symptoms. MEDICAL HISTORY: Obesity, type 2 diabetes, hypertension, and hypothyroidism. Recent COVID infection diagnosed in [facility] at mid-November, where she stayed for about 2 days and was treated with Decadron, and then sent home on O2 supplementation. She has never smoked in her life. She lives with family in [place]. ALLERGIES: SHE HAS NO ALLERGY HISTORY. FAMILY HISTORY: Noncontributory. PHYSICAL EXAMINATION: VITAL SIGNS: Normal temperature and pulse 80, respirations 17, and O2 saturation 95. SKIN: Not remarkable. No lymphadenopathy. HEENT: Ocular movements conjugate. No edema. Pupils are equal. Oral cavity, quite a few missing teeth with oral mucosa normal. NECK: Supple. No jugular vein distention or carotid bruits. LUNGS: Symmetric air entry. A few crackles at the bases. No wheezing. HEART: S1 and S2. Regular rate. No S3 or S4. ABDOMEN: Soft, not distended or tender. No ascites. No bladder distention. No joint inflammatory activity. EXTREMITIES: No edema. Pulses 1+ in dorsalis pedis. Plantar responses are flexor. NEUROLOGIC: Her speech is normal. She speaks in full sentences and does not appear breathless. She is oriented and pleasant. LABORATORY DATA: Latest labs; white cell count 8.1, hemoglobin 9.8, MCV 78, and platelets 208. D-dimer 0.45, which is barely above the upper limit of normal. Creatinine normal. Lactic acid 2.3. Two sets of blood culture, no growth. ASSESSMENT AND PLAN: Type 2 diabetes, hypertension with recent COVID infection. This is about 6 weeks after onset of illness and she had recovered after Decadron treatment in [facility], she did not receive antiviral treatment there. She was pretty hypoxic while in [facility] with a room air O2 saturations of 87 after a brief effort. Right now, she is much improved with O2 saturations in the 95% to 98% range on room air. So, at this point, I would recommend discharge planning. Discontinue antimicrobial therapy. There have been case reports of recurrent infection with a COVID, which were fairly well documented by sequencing comparison, but her covered test here was negative, so I am satisfied with that. She never had much inflammatory change in [facility] and she certainly does not have here much either. Her CRP is much lower than what it was in [facility] now. So, I think she is going to do well, may have some coughing spells intermittently for quite a while though, so consider discharge. Job ID: [id number] [facility]
== END 2020-01-20 20:05 | disposition home or self-care (01) ==
LOC: ERS 15:35 → T4-B 18:12
PROVIDERS: ADMIT Student in an Organized Health Care Education/Training Program; ATTEND Student in an Organized Health Care Education/Training Program
DX: R05 Cough (principal); R06.02 Shortness of breath; I12.9 Hypertensive chronic kidney disease with stage 1 through stage 4 chronic kidney disease, or unspecified chronic kidney disease; E11.22 Type 2 diabetes mellitus with diabetic chronic kidney disease; N18.9 Chronic kidney disease, unspecified; E03.9 Hypothyroidism, unspecified; M19.90 Unspecified osteoarthritis, unspecified site; F32.9 Major depressive disorder, single episode, unspecified; E83.42 Hypomagnesemia; E11.10 Type 2 diabetes mellitus with ketoacidosis without coma; E66.9 Obesity, unspecified; Z68.38 Body mass index [BMI] 38.0-38.9, adult; Z86.19 Personal history of other infectious and parasitic diseases; Z79.84 Long term (current) use of oral hypoglycemic drugs; Z79.899 Other long term (current) drug therapy; Z20.828 Contact with and (suspected) exposure to other viral communicable diseases
CPT/HCPCS: 71045; 71275; 80048; 80053; 81001; 82010; 82728; 82962 ×2; 83605 ×2; 83735; 83880; 84100; 84484; 85025 ×2; 85379; 86140; 87040; 93005; 96361; 96365; 96375; 99285; U0002; 36415; 36416; 81003; 81015; 96367; G0378; J0456; J0690; J0696; J2405; J3475; J3490; Q9967

== ENCOUNTER 2020-10-14 18:17 | Observation (INO) | payer MEDICARE, MEDICAID ==
[~2020-10-14 18:17] MED LIST changes: -Prevnar 13-Val Conj/PF 0.5 ML SYRINGE IM ONE
[2020-10-14] MEDS ORDERED: Ondansetron PF 4 MG/2 ML Vial ONE (18:58)
[2020-10-14] MEDS ORDERED: Morphine 4 MG/ML VIAL ONE (18:58)
[2020-10-14 19:05] LABS: Hemoglobin 9.4 g/dL (12.0-16.0); Mean Corpuscular HGB CONC 32.4 g/dL (32.0-36.0); Mean Corpuscular Hemoglobin 23.6 pg (27.0-31.0); Mean Corpuscular Volume 72.9 fL (78.0-98.0); Mean Platelet Volume 10.9 fL (7.4-10.4); Platelet Count 236 thou/uL (130-400); Red Blood Cell (RBC) Count 3.99 mill/uL (4.20-5.40); White Blood Cell (WBC) Count 11.9 thou/uL (4.8-10.8)
[2020-10-14 19:21] LABS: #Basophils 0.1 thou/uL (0.0-0.2); #Eosinphils 0.2 thou/uL (0.0-0.7); #Lymphocytes 3.6 thou/uL (1.20-3.40); #Monocytes 0.5 thou/uL (0.11-0.59); #Neutrophils 7.6 thou/uL (1.40-6.50); %Basophils 0.4 % (0.0-1.0); %Eosinophils 1.4 % (0.0-10.0); %Lymphocytes 29.8 % (21.0-51.0); %Monocytes 4.5 % (0.0-10.0); %Neutrophils 63.9 % (42.0-75.0); MDiff Complete? YES; Microcytosis MODERATE=15-30 cells (100X) (0-5/hpf); Ovalocytes SLIGHT = 2-5 cells (100X) (0-1/hpf)
[2020-10-14 19:36] LABS: ALT (SGPT) 43 U/L (8-55); AST (SGOT) 35 U/L (5-34); Albumin 4.2 g/dL (3.4-4.8); Alkaline Phosphatase 96 U/L (40-110); Anion Gap 17 mmol/L (10-20); BUN (Urea Nitrogen) 21 mg/dL (9.8-20.1); Bilirubin, Total 0.2 mg/dL (0.2-1.2); Calc. Creatinine Clearance 0 mL/min (70-130); Calcium 9.1 mg/dL (7.8-10.44); Carbon Dioxide 22 mmol/L (23-31); Chloride 104 mmol/L (98-107); Globulin 3.3 g/dL (2.4-3.5); Glucose 191 mg/dL (80-115); Lipase 34 U/L (8-78); Potassium 4.2 mmol/L (3.5-5.1); Protein, Total 7.5 g/dL (5.8-8.1); Sodium 139 mmol/L (136-145)
[2020-10-14] MEDS ORDERED: Metoclopramide HCl 10 MG/2 ML VIAL ONE (20:34)
[2020-10-14] MEDS ORDERED: Acetaminophen 500 MG TAB ONE (20:34)
[2020-10-14] MEDS ORDERED: diphenhydrAMINE 50 MG/ML VIAL ONE (20:34)
[2020-10-14] MEDS ORDERED: Ondansetron ODT 4 MG TAB ONE (20:43)
[2020-10-14 22:51] LABS: Troponin I 0.019 ng/mL (< 0.028)
[2020-10-14] MEDS ORDERED: Nitroglycerin 0.4 MG TAB (25 Tab Bottle) SL PRN (23:33)
[2020-10-14] MEDS ORDERED: Dextrose 50% Abboject 50 ML SYRINGE SLOW IVP PRN (23:37)
[2020-10-14] MEDS ORDERED: Dextrose 5% in Water 1,000 ML IV PRN (23:37)
[2020-10-14] MEDS ORDERED: HumaLOG 300 UNITS/3 ML VIAL SC PRN ×2 (23:37)
[2020-10-14] MEDS ORDERED: Ondansetron PF 4 MG/2 ML Vial IVP PRN (23:38)
[2020-10-14] MEDS ORDERED: Ondansetron ODT 4 MG TAB PO PRN (23:38)
[2020-10-14] MEDS ORDERED: Acetaminophen 325 MG TAB PO PRN (23:38)
[2020-10-14] MEDS ORDERED: Morphine 2 MG/ML VIAL SLOW IVP PRN (23:43)
[2020-10-14] MEDS ORDERED: Atorvastatin Calcium 40 MG TAB PO SCH (23:45)
[2020-10-14] MEDS ORDERED: Lidocaine 2% Viscous Solution 10 ML, Aluminum & Magnesium Hydroxide 30 ML SSW SCH (23:45)
[2020-10-14] MEDS ORDERED: Carvedilol 3.125 MG TAB PO SCH (23:45)
[2020-10-15] MEDS ORDERED: Magnesium 2 GM/50 ML 2 GM in Premix Bag 1 BAG IVPB SCH (00:45)
[2020-10-15 01:08] VITALS: BMI 39.6
[2020-10-15 02:04] LABS: Troponin I 0.012 ng/mL (< 0.028)
[2020-10-15 02:13] LABS: SARS-CoV-2 NAA Rapid Test Not Detected (NotDetected)
[2020-10-15 04:56] LABS: #Eosinphils 0.2 thou/uL (0.0-0.7); #Lymphocytes 3.3 thou/uL (1.20-3.40); #Monocytes 0.5 thou/uL (0.11-0.59); #Neutrophils 4.5 thou/uL (1.40-6.50); %Basophils 0.5 % (0.0-1.0); %Eosinophils 2.4 % (0.0-10.0); %Monocytes 5.5 % (0.0-10.0); %Neutrophils 52.6 % (42.0-75.0); Hemoglobin 8.4 g/dL (12.0-16.0); Mean Corpuscular HGB CONC 31.8 g/dL (32.0-36.0); Mean Corpuscular Hemoglobin 23.7 pg (27.0-31.0); Mean Corpuscular Volume 74.6 fL (78.0-98.0); Mean Platelet Volume 10.7 fL (7.4-10.4); Platelet Count 214 thou/uL (130-400); RBC Distribution Width 16.8 % (11.5-14.5); Red Blood Cell (RBC) Count 3.54 mill/uL (4.20-5.40); White Blood Cell (WBC) Count 8.6 thou/uL (4.8-10.8)
[2020-10-15 05:23] LABS: Anion Gap 13 mmol/L (10-20); BUN (Urea Nitrogen) 22 mg/dL (9.8-20.1); Calc. Creatinine Clearance 89 mL/min (70-130); Calcium 8.5 mg/dL (7.8-10.44); Carbon Dioxide 24 mmol/L (23-31); Cardiac Risk 5.2 (Less than 4.5); Chloride 106 mmol/L (98-107); Cholesterol 155 mg/dl (< 200 Desired); Glucose 150 mg/dL (80-115); HDL Cholesterol 30 mg/dL (>60 Neg Risk); LDL Cholesterol, Calculated 101 mg/dL; Potassium 4.1 mmol/L (3.5-5.1); Sodium 139 mmol/L (136-145); Triglycerides 119 mg/dL (Less than 150)
[2020-10-15] MEDS: Nitroglycerin 2% Ointment 1 INCH/1 GM Packet TOP SCH ×2 (05:39→15:55)
[2020-10-15] MEDS ORDERED: Levothyroxine 150 MCG TAB PO SCH (06:00)
[2020-10-15 08:03] LABS: Bacteria/HPF None Seen HPF (None Seen); Bilirubin Negative (Negative); Blood, Urine Negative (Negative); Clarity Clear (Clear); Glucose, Urine (Dipstick) Normal (Negative); Ketone, Urine Negative (Negative); Leukocyte Negative Leu/uL (Negative); Nitrite Negative (Negative); Protein, Urine (Dipstick) 10 mg/dL (Neg-Trace); RBC/HPF 0-3 HPF (0-3); Specific Gravity, Urine 1.035 (1.002-1.036); Urobilinogen Normal mg/dL (Less than 2); WBC/HPF 0-3 HPF (0-3)
[2020-10-15 08:06] LABS: Urine Culture Reflex No No
[2020-10-15] MEDS ORDERED: Famotidine 20 MG TAB PO SCH ×2 (09:00)
[2020-10-15] MEDS ORDERED: Aspirin Chewable 81 MG TAB PO SCH (09:00)
[2020-10-15] MEDS ORDERED: Lisinopril 5 MG TAB PO SCH (09:00)
[2020-10-15 11:49] VITALS: BP 136/62; TEMP 98.2
[2020-10-15] MEDS ORDERED: traZODone HCl 50 MG TAB PO SCH (21:00)
== END 2020-10-15 15:45 | disposition home or self-care (01) ==
LOC: ERS 18:17 → 2NO 21:18
PROVIDERS: ADMIT Student in an Organized Health Care Education/Training Program; ATTEND Internal Medicine
DX: R07.89 Other chest pain (principal); I16.0 Hypertensive urgency; I10 Essential (primary) hypertension; D50.9 Iron deficiency anemia, unspecified; E78.5 Hyperlipidemia, unspecified; E11.9 Type 2 diabetes mellitus without complications; K21.9 Gastro-esophageal reflux disease without esophagitis; M19.90 Unspecified osteoarthritis, unspecified site; E03.9 Hypothyroidism, unspecified; E83.42 Hypomagnesemia; D72.829 Elevated white blood cell count, unspecified; J34.1 Cyst and mucocele of nose and nasal sinus; I08.1 Rheumatic disorders of both mitral and tricuspid valves; E66.9 Obesity, unspecified; Z68.39 Body mass index [BMI] 39.0-39.9, adult; Z79.84 Long term (current) use of oral hypoglycemic drugs; Z79.899 Other long term (current) drug therapy; Z20.822 Contact with and (suspected) exposure to COVID-19
CPT/HCPCS: 70450; 71045; 71275; 74174; 80048; 80061; 81001; 82962; 83690; 83735 ×2; 83880; 84484 ×3; 85025; 93005; 93306; 94760; 96365; 96367; 96375; 99285; G0378 ×2; U0002; U0005; 36415; 36416; 80053; 84443; J1200; J1815; J2270; J2405; J2765; J3475; Q0162; Q9967

== ENCOUNTER 2021-02-12 17:42 | Emergency (ER) | payer MEDICARE, MEDICAID ==
[2021-02-12 19:04] LABS: #Basophils 0.1 thou/uL (0.0-0.2); #Eosinphils 0.3 thou/uL (0.0-0.7); #Lymphocytes 4.8 thou/uL (1.20-3.40); #Monocytes 0.6 thou/uL (0.11-0.59); #Neutrophils 6.8 thou/uL (1.40-6.50); %Basophils 0.5 % (0.0-1.0); %Eosinophils 2.1 % (0.0-10.0); %Lymphocytes 38.4 % (21.0-51.0); %Monocytes 4.4 % (0.0-10.0); %Neutrophils 54.6 % (42.0-75.0); Hemoglobin 10.9 g/dL (12.0-16.0); Mean Corpuscular HGB CONC 32.9 g/dL (32.0-36.0); Mean Corpuscular Hemoglobin 26.3 pg (27.0-31.0); Mean Corpuscular Volume 79.9 fL (78.0-98.0); Mean Platelet Volume 10.8 fL (7.4-10.4); Platelet Count 197 thou/uL (130-400); RBC Distribution Width 15.2 % (11.5-14.5); Red Blood Cell (RBC) Count 4.13 mill/uL (4.20-5.40); White Blood Cell (WBC) Count 12.5 thou/uL (4.8-10.8)
[2021-02-12] MEDS ORDERED: Ondansetron ODT 4 MG TAB ONE (19:22)
[2021-02-12 19:26] LABS: ALT (SGPT) 33 U/L (8-55); AST (SGOT) 26 U/L (5-34); Albumin 3.8 g/dL (3.4-4.8); Alkaline Phosphatase 93 U/L (40-110); Anion Gap 15 mmol/L (10-20); BUN (Urea Nitrogen) 23 mg/dL (9.8-20.1); Bilirubin, Total 0.2 mg/dL (0.2-1.2); Calc. Creatinine Clearance 0 mL/min (70-130); Calcium 8.9 mg/dL (7.8-10.44); Carbon Dioxide 22 mmol/L (23-31); Chloride 104 mmol/L (98-107); Globulin 3.4 g/dL (2.4-3.5); Glucose 136 mg/dL (80-115); Potassium 4.4 mmol/L (3.5-5.1); Protein, Total 7.2 g/dL (5.8-8.1); Sodium 137 mmol/L (136-145)
[2021-02-12 20:08] LABS: Bacteria/HPF 1+ HPF (None Seen); Bilirubin Negative (Negative); Blood, Urine Negative (Negative); Clarity Clear (Clear); Glucose, Urine (Dipstick) Normal (Negative); Ketone, Urine Trace mg/dL (Negative); Leukocyte 75 Leu/uL (Negative); Nitrite Negative (Negative); Protein, Urine (Dipstick) 10 mg/dL (Neg-Trace); RBC/HPF 0-3 HPF (0-3); Specific Gravity, Urine 1.029 (1.002-1.036); Urobilinogen Normal mg/dL (Less than 2); WBC/HPF 0-3 HPF (0-3)
[2021-02-13 09:12] LABS: SARS-CoV-2 PCR by NAA Not Detected (NotDetected)
== END 2021-02-12 20:47 | disposition home or self-care (01) ==
LOC: ERS 17:42
DX: N39.0 Urinary tract infection, site not specified (principal); R11.2 Nausea with vomiting, unspecified; D64.9 Anemia, unspecified; E86.0 Dehydration; Z20.822 Contact with and (suspected) exposure to COVID-19; D72.829 Elevated white blood cell count, unspecified; E11.9 Type 2 diabetes mellitus without complications; E03.9 Hypothyroidism, unspecified; I10 Essential (primary) hypertension; K21.9 Gastro-esophageal reflux disease without esophagitis; M19.90 Unspecified osteoarthritis, unspecified site; Z79.84 Long term (current) use of oral hypoglycemic drugs; Z79.899 Other long term (current) drug therapy
CPT/HCPCS: 71045; 80053; 85025; U0003; U0005; 36415; 81003; 81015; Q0162

== ENCOUNTER 2021-07-20 10:04 | Emergency (ER) | payer MEDICAID, MEDICARE ==
[2021-07-20 11:56] LABS: #Eosinphils 0.1 thou/uL (0.0-0.7); #Lymphocytes 1.2 thou/uL (1.20-3.40); #Monocytes 0.5 thou/uL (0.11-0.59); #Neutrophils 6.8 thou/uL (1.40-6.50); %Basophils 0.4 % (0.0-1.0); %Eosinophils 1.5 % (0.0-10.0); %Lymphocytes 14.1 % (21.0-51.0); %Monocytes 5.8 % (0.0-10.0); %Neutrophils 78.2 % (42.0-75.0); Hemoglobin 11.3 g/dL (12.0-16.0); Mean Corpuscular HGB CONC 32.4 g/dL (32.0-36.0); Mean Corpuscular Hemoglobin 25.4 pg (27.0-31.0); Mean Corpuscular Volume 78.4 fL (78.0-98.0); Mean Platelet Volume 10.1 fL (7.4-10.4); Platelet Count 191 thou/uL (130-400); RBC Distribution Width 15.2 % (11.5-14.5); Red Blood Cell (RBC) Count 4.47 mill/uL (4.20-5.40); White Blood Cell (WBC) Count 8.7 thou/uL (4.8-10.8)
[2021-07-20 12:17] LABS: ALT (SGPT) 53 U/L (8-55); AST (SGOT) 58 U/L (5-34); Albumin 4.2 g/dL (3.4-4.8); Alkaline Phosphatase 121 U/L (40-110); Anion Gap 15 mmol/L (10-20); BUN (Urea Nitrogen) 17 mg/dL (9.8-20.1); Bilirubin, Total 0.4 mg/dL (0.2-1.2); Calc. Creatinine Clearance 0 mL/min (70-130); Carbon Dioxide 21 mmol/L (23-31); Chloride 98 mmol/L (98-107); Globulin 3.6 g/dL (2.4-3.5); Glucose 353 mg/dL (80-115); Potassium 4.5 mmol/L (3.5-5.1); Protein, Total 7.8 g/dL (5.8-8.1); Sodium 129 mmol/L (136-145)
[2021-07-20] MEDS ORDERED: Ondansetron PF 4 MG/2 ML Vial ONE (12:26)
[2021-07-20] MEDS ORDERED: Ketorolac Tromethamine 30 MG/ML VIAL ONE (12:26)
[2021-07-20] MEDS ORDERED: Acetaminophen 500 MG TAB ONE (12:26)
[2021-07-20 15:21] LABS: SARS-CoV-2 NAA Rapid Test Not Detected (NotDetected)
[2021-07-20 15:39] LABS: Lactic Acid 2.5 mmol/L (0.5-2.2)
== END 2021-07-20 16:34 | disposition home or self-care (01) ==
LOC: ERS 10:04
DX: J10.1 Influenza due to other identified influenza virus with other respiratory manifestations (principal); E86.0 Dehydration; E87.2 Acidosis; Z20.822 Contact with and (suspected) exposure to COVID-19; E03.9 Hypothyroidism, unspecified; I10 Essential (primary) hypertension; Z79.899 Other long term (current) drug therapy
CPT/HCPCS: 0240U; 36415; 71045; 80053; 83605; 84484; 85025; 87040; 93005; 96374; 96375; J1885; J2405

== ENCOUNTER 2022-01-03 10:10 | Emergency (ER) | payer OTHER ==
[2022-01-03 11:05] LABS: #Eosinphils 0.1 thou/uL (0.0-0.7); #Lymphocytes 2.6 thou/uL (1.20-3.40); #Monocytes 0.4 thou/uL (0.11-0.59); #Neutrophils 5.8 thou/uL (1.40-6.50); %Basophils 0.2 % (0.0-1.0); %Eosinophils 1.2 % (0.0-10.0); %Lymphocytes 28.8 % (21.0-51.0); %Monocytes 4.5 % (0.0-10.0); %Neutrophils 65.4 % (42.0-75.0); Hemoglobin 10.6 g/dL (12.0-16.0); Mean Corpuscular HGB CONC 32.5 g/dL (32.0-36.0); Mean Corpuscular Hemoglobin 25.8 pg (27.0-31.0); Mean Corpuscular Volume 79.4 fL (78.0-98.0); Mean Platelet Volume 9.9 fL (7.4-10.4); Platelet Count 184 thou/uL (130-400); Red Blood Cell (RBC) Count 4.11 mill/uL (4.20-5.40); White Blood Cell (WBC) Count 8.9 thou/uL (4.8-10.8)
[2022-01-03 11:24] LABS: ALT (SGPT) 23 U/L (8-55); AST (SGOT) 19 U/L (5-34); Albumin 3.9 g/dL (3.4-4.8); Alkaline Phosphatase 84 U/L (40-110); Anion Gap 15 mmol/L (10-20); BUN (Urea Nitrogen) 19 mg/dL (9.8-20.1); Bilirubin, Total 0.3 mg/dL (0.2-1.2); Calc. Creatinine Clearance 0 mL/min (70-130); Carbon Dioxide 25 mmol/L (23-31); Chloride 103 mmol/L (98-107); Estimated GFR 77; Globulin 3.4 g/dL (2.4-3.5); Glucose 90 mg/dL (80-115); Protein, Total 7.3 g/dL (5.8-8.1); Sodium 139 mmol/L (136-145)
[2022-01-03] MEDS ORDERED: Ketorolac Tromethamine 30 MG/ML VIAL ONE (11:25)
[2022-01-03] MEDS ORDERED: Acetaminophen 500 MG TAB ONE (11:25)
[2022-01-03] MEDS ORDERED: Metoclopramide HCl 10 MG/2 ML VIAL ONE (11:25)
[2022-01-03] MEDS ORDERED: methylPREDNISolone Sod Succ 1 GM in Sodium Chloride 0.9% 250 ML 250 ML IVPB SCH (13:00)
[2022-01-04] MEDS ORDERED: methylPREDNISolone Sod Succ 1 GM in Sodium Chloride 0.9% 250 ML 250 ML IVPB SCH (09:00)
== END 2022-01-03 15:11 | disposition home or self-care (01) ==
LOC: ERS 10:10
DX: M31.6 Other giant cell arteritis (principal); R51.9 Headache, unspecified; E11.9 Type 2 diabetes mellitus without complications; E03.9 Hypothyroidism, unspecified; I10 Essential (primary) hypertension; K21.9 Gastro-esophageal reflux disease without esophagitis; E78.00 Pure hypercholesterolemia, unspecified; Z79.899 Other long term (current) drug therapy; Z79.84 Long term (current) use of oral hypoglycemic drugs
CPT/HCPCS: 36415; 70450; 80053; 85025; 85652; 86140; 96365; 96366; 96368; 96375; J1885; J2765; J2930; J7050

== ENCOUNTER 2022-01-04 10:45 | Day surgery (SDC) | payer MEDICARE, OTHER ==
[2022-01-04] MEDS ORDERED: methylPREDNISolone Sod Succ 1 GM in Sodium Chloride 0.9% 250 ML 250 ML IVPB SCH (12:00)
== END 2022-01-04 16:00 | disposition home or self-care (01) ==
LOC: ONC/OP 10:45
PROVIDERS: ATTEND Emergency Medicine
DX: M31.6 Other giant cell arteritis (principal)
CPT/HCPCS: 96365; J2930; J7050

== ENCOUNTER 2022-01-05 11:02 | Day surgery (SDC) | payer MEDICARE, OTHER ==
[2022-01-05] MEDS ORDERED: methylPREDNISolone Sod Succ 1 GM in Sodium Chloride 0.9% 250 ML 250 ML IVPB SCH (11:30)
[2022-01-05 13:18] VITALS: BP 161/77; TEMP 98.2
== END 2022-01-05 13:19 | disposition home or self-care (01) ==
LOC: ONC/OP 11:02
PROVIDERS: ATTEND Emergency Medicine
DX: M31.6 Other giant cell arteritis (principal)
CPT/HCPCS: 96365; J2930; J7050

== ENCOUNTER 2022-04-23 18:09 | Emergency (ER) | payer OTHER ==
[2022-04-23 18:47] LABS: #Eosinphils 0.1 thou/uL (0.0-0.7); #Lymphocytes 2.3 thou/uL (1.20-3.40); #Monocytes 0.5 thou/uL (0.11-0.59); #Neutrophils 4.2 thou/uL (1.40-6.50); %Basophils 0.3 % (0.0-1.0); %Eosinophils 1.5 % (0.0-10.0); %Lymphocytes 32.6 % (21.0-51.0); %Monocytes 6.7 % (0.0-10.0); %Neutrophils 58.9 % (42.0-75.0); Hemoglobin 10.6 g/dL (12.0-16.0); Mean Corpuscular HGB CONC 31.9 g/dL (32.0-36.0); Mean Corpuscular Hemoglobin 25.1 pg (27.0-31.0); Mean Corpuscular Volume 78.7 fl (78.0-98.0); Mean Platelet Volume 10.2 fL (7.4-10.4); Platelet Count 173 10x3/uL (130-400); RBC Distribution Width 15.8 % (11.5-14.5); White Blood Cell (WBC) Count 7.1 10x3/uL (4.8-10.8)
[2022-04-23 19:06] LABS: ALT (SGPT) 27 U/L (8-55); AST (SGOT) 27 U/L (5-34); Alkaline Phosphatase 111 U/L (40-110); Anion Gap 13 mmol/L (10-20); BUN (Urea Nitrogen) 22 mg/dL (9.8-20.1); Bilirubin, Total 0.3 mg/dL (0.2-1.2); Calc. Creatinine Clearance 0 mL/min (70-130); Calcium 8.7 mg/dL (7.8-10.44); Carbon Dioxide 23 mmol/L (23-31); Chloride 105 mmol/L (98-107); Estimated GFR 60; Globulin 3.1 g/dL (2.4-3.5); Glucose 122 mg/dL (80-115); Potassium 4.3 mmol/L (3.5-5.1); Protein, Total 7.1 g/dL (5.8-8.1); Sodium 137 mmol/L (136-145)
[2022-04-23] MEDS ORDERED: Ipratropium Bromide 2.5 ml Neb ONE (21:45)
[2022-04-23] MEDS ORDERED: Ketorolac Tromethamine 30 MG/ML VIAL ONE (22:34)
== END 2022-04-23 22:57 | disposition home or self-care (01) ==
LOC: ERS 18:09
DX: J98.01 Acute bronchospasm (principal); E11.9 Type 2 diabetes mellitus without complications; K21.9 Gastro-esophageal reflux disease without esophagitis; I10 Essential (primary) hypertension; E03.9 Hypothyroidism, unspecified; E78.00 Pure hypercholesterolemia, unspecified; Z79.84 Long term (current) use of oral hypoglycemic drugs; Z79.899 Other long term (current) drug therapy
CPT/HCPCS: 36415; 71045; 80053; 84484; 85025; 87804; 93005; 94640; 94760; 96372; J1885; J7620

== ENCOUNTER 2023-01-15 18:04 | Emergency (ER) | payer OTHER ==
[2023-01-15 20:39] LABS: SARS-CoV-2 NAA Rapid Test DETECTED (NotDetected)
== END 2023-01-15 21:22 | disposition home or self-care (01) ==
LOC: ERS 18:04
DX: U07.1 COVID-19 (principal); E11.9 Type 2 diabetes mellitus without complications; E03.9 Hypothyroidism, unspecified; I10 Essential (primary) hypertension; K21.9 Gastro-esophageal reflux disease without esophagitis; E78.00 Pure hypercholesterolemia, unspecified
CPT/HCPCS: 0240U; 71045

== ENCOUNTER 2023-03-31 02:28 | Observation (INO) | payer OTHER ==
[2023-03-31 04:03] LABS: #Eosinphils 0.1 thou/uL (0.0-0.7); #Monocytes 0.5 thou/uL (0.11-0.59); #Neutrophils 7.3 thou/uL (1.40-6.50); %Basophils 0.4 % (0.0-1.0); %Neutrophils 69.4 % (42.0-75.0); Hematocrit 31.3 % (36.0-47.0); Hemoglobin 9.9 g/dL (12.0-16.0); Mean Corpuscular HGB CONC 31.6 g/dL (32.0-36.0); Mean Corpuscular Hemoglobin 25.2 pg (27.0-31.0); Mean Corpuscular Volume 79.6 fl (78.0-98.0); Mean Platelet Volume 11.2 fL (7.4-10.4); Platelet Count 189 10x3/uL (130-400); RBC Distribution Width 16.8 % (11.5-14.5); Red Blood Cell (RBC) Count 3.93 mill/uL (4.20-5.40); White Blood Cell (WBC) Count 10.5 10x3/uL (4.8-10.8)
[2023-03-31 04:26] LABS: ALT (SGPT) 23 U/L (8-55); AST (SGOT) 20 U/L (5-34); Albumin 4.3 g/dL (3.4-4.8); Alkaline Phosphatase 93 U/L (40-110); Anion Gap 16 mmol/L (10-20); BUN (Urea Nitrogen) 18 mg/dL (9.8-20.1); Bilirubin, Total 0.4 mg/dL (0.2-1.2); Calc. Creatinine Clearance 0 mL/min (70-130); Calcium 9.1 mg/dL (7.8-10.44); Carbon Dioxide 20 mmol/L (23-31); Chloride 105 mmol/L (98-107); Estimated GFR 60; Globulin 2.9 g/dL (2.4-3.5); Glucose 168 mg/dL (83-110); Lipase 25 U/L (8-78); Potassium 4.2 mmol/L (3.5-5.1); Protein, Total 7.2 g/dL (5.8-8.1); Sodium 137 mmol/L (136-145)
[2023-03-31 04:28] LABS: Troponin I Less than 0.010 ng/mL (< 0.028)
[2023-03-31] MEDS ORDERED: Metoclopramide HCl 10 MG/2 ML VIAL ONE (04:28)
[2023-03-31] MEDS ORDERED: Diazepam 10 MG/2 ML SYRINGE ONE (04:29)
[2023-03-31 04:59] LABS: Bacteria/HPF None Seen HPF (None Seen); Bilirubin Negative (Negative); Blood, Urine Negative (Negative); CAUTI Indications for Culture Immunosuppressed; Clarity Clear (Clear); Glucose, Urine (Dipstick) Normal (Negative); Ketone, Urine Trace mg/dL (Negative); Leukocyte Negative Leu/uL (Negative); Nitrite Negative (Negative); Protein, Urine (Dipstick) Negative (Neg-Trace); RBC/HPF 0-3 HPF (0-3); Specific Gravity, Urine 1.022 (1.002-1.036); Squamous Epithelial 0-3 HPF (0-3); Urobilinogen Normal mg/dL (Less than 2); WBC/HPF 0-3 HPF (0-3); pH, Urine 5.5 (5.0-9.0)
[2023-03-31] MEDS ORDERED: Meclizine HCl 25 MG TAB ONE (06:29)
[2023-03-31] MEDS ORDERED: Ondansetron ODT 4 MG TAB PO PRN (07:51)
[2023-03-31] MEDS ORDERED: Dextrose 5% in Water 1,000 ML IV PRN (07:51)
[2023-03-31] MEDS ORDERED: Insulin Regular 300 UNITS/3 ML VIAL SC PRN (07:51)
[2023-03-31] MEDS ORDERED: Dextrose 50% Abboject 50 ML SYRINGE SLOW IVP PRN (07:51)
[2023-03-31] MEDS ORDERED: Glucagon 1 MG/ML KIT IM PRN (07:51)
[2023-03-31] MEDS ORDERED: Acetaminophen 325 MG TAB PO PRN (07:51)
[2023-03-31 08:02] VITALS: BMI 37.5
[2023-03-31] MEDS ORDERED: Sodium Chloride 0.9% 500 ML IV SCH (08:15)
[2023-03-31] MEDS ORDERED: SUMAtriptan Succinate 25 MG TAB PO SCH (08:30)
[2023-03-31 08:35] LABS: Cardiac Risk 4.3 (Less than 4.5)
[2023-03-31] MEDS ORDERED: Famotidine 20 MG TAB ONE (09:10)
[2023-03-31] MEDS: Lisinopril 5 MG TAB PO SCH (09:20)
[2023-03-31] MEDS: Famotidine 20 MG TAB PO SCH ×2 (09:20→21:18)
[2023-03-31 09:45] LABS: Iron 33 ug/dL (50-170); Iron Binding Capacity, Total 380 mcg/dL (265-497)
[2023-03-31] MEDS ORDERED: Ketorolac Tromethamine 30 MG/ML VIAL IVP SCH (14:15)
[2023-03-31] MEDS: metFORMIN 500 MG TAB PO SCH (16:15)
[2023-03-31] MEDS ORDERED: Iron Sucrose Complex 200 MG in Sodium Chloride 0.9% 100 ML IVPB SCH (18:30)
[2023-03-31] MEDS ORDERED: Iron, Sodium Ferric Gluconate 250 MG in Sodium Chloride 0.9% 250 ML 250 ML IVPB SCH (18:45)
[2023-03-31] MEDS: glipiZIDE XL 5 mg ER.TAB PO SCH (21:17)
[2023-03-31] MEDS: Ketorolac Tromethamine 30 MG/ML VIAL IVP SCH (21:18)
[2023-04-01] MEDS: Ketorolac Tromethamine 30 MG/ML VIAL IVP SCH ×3 (03:24→14:55)
[2023-04-01 05:03] LABS: #Basophils 0.1 thou/uL (0.0-0.2); #Eosinphils 0.2 thou/uL (0.0-0.7); #Monocytes 0.4 thou/uL (0.11-0.59); #Neutrophils 4.4 thou/uL (1.40-6.50); %Basophils 0.6 % (0.0-1.0); %Eosinophils 1.8 % (0.0-10.0); %Lymphocytes 38.6 % (21.0-51.0); %Monocytes 5.4 % (0.0-10.0); %Neutrophils 53.4 % (42.0-75.0); Hematocrit 31.3 % (36.0-47.0); Hemoglobin 9.8 g/dL (12.0-16.0); Mean Corpuscular HGB CONC 31.3 g/dL (32.0-36.0); Mean Corpuscular Hemoglobin 25.5 pg (27.0-31.0); Mean Corpuscular Volume 81.5 fl (78.0-98.0); Mean Platelet Volume 12.7 fL (7.4-10.4); Platelet Count 182 10x3/uL (130-400); RBC Distribution Width 17.3 % (11.5-14.5); Red Blood Cell (RBC) Count 3.84 mill/uL (4.20-5.40); White Blood Cell (WBC) Count 8.2 10x3/uL (4.8-10.8)
[2023-04-01 05:23] LABS: Anion Gap 16 mmol/L (10-20); BUN (Urea Nitrogen) 27 mg/dL (9.8-20.1); Calc. Creatinine Clearance 72 mL/min (70-130); Calcium 8.4 mg/dL (7.8-10.44); Carbon Dioxide 20 mmol/L (23-31); Chloride 107 mmol/L (98-107); Estimated GFR 54; Glucose 208 mg/dL (83-110); Potassium 4.4 mmol/L (3.5-5.1); Sodium 139 mmol/L (136-145)
[2023-04-01] MEDS ORDERED: Levothyroxine 150 MCG TAB PO SCH (06:00)
[2023-04-01] MEDS: glipiZIDE XL 5 mg ER.TAB PO SCH (09:56)
[2023-04-01] MEDS: metFORMIN 500 MG TAB PO SCH (09:56)
[2023-04-01] MEDS: Famotidine 20 MG TAB PO SCH (09:56)
[2023-04-01] MEDS: Lisinopril 5 MG TAB PO SCH (09:57)
[2023-04-01 11:31] VITALS: TEMP 97.6
[2023-04-01] MEDS ORDERED: Magnevist 469MG/ML 20 ML VIAL ONE (12:40)
[2023-04-01 16:05] VITALS: BP 143/68
== END 2023-04-01 17:36 | disposition home or self-care (01) ==
LOC: ERS 02:28 → ERHOLD 07:22 → 2NO 10:31
PROVIDERS: ADMIT Internal Medicine; ATTEND Internal Medicine
DX: R42 Dizziness and giddiness (principal); R51.9 Headache, unspecified; I10 Essential (primary) hypertension; E03.9 Hypothyroidism, unspecified; R53.1 Weakness; E78.5 Hyperlipidemia, unspecified; E11.9 Type 2 diabetes mellitus without complications; N20.0 Calculus of kidney; D64.9 Anemia, unspecified; K21.9 Gastro-esophageal reflux disease without esophagitis; Z79.84 Long term (current) use of oral hypoglycemic drugs; Z79.890 Hormone replacement therapy; Z79.899 Other long term (current) drug therapy; Z90.49 Acquired absence of other specified parts of digestive tract; Z87.59 Personal history of other complications of pregnancy, childbirth and the puerperium
CPT/HCPCS: 70450; 70553; 71045; 80048; 80053; 80061; 81001; 82728; 82962 ×2; 83540; 83550; 83690; 84484; 85025 ×2; 93005; 96365; 96366; 96375 ×2; 96376 ×2; 97116; 99285; G0378 ×2; 36415; 36416; 96374; A9579; J1885; J2765; J2916; J3360; J7030; J7050

== ENCOUNTER 2024-04-10 18:32 | Emergency (ER) | payer OTHER ==
[~2024-04-10 18:32] MED LIST changes: -Iopamidol-370 76% 500 ML 1 ML ONE; +Iopamidol-370 76% 500 ML MDV (1 ML CHARGE) ONE
[2024-04-10] MEDS ORDERED: Ketorolac Tromethamine 30 MG (1 mL) VIAL ONE (18:51)
[2024-04-10 19:22] LABS: #Basophils Less than 0.03 10x3/uL (0.0-0.2); %Basophils 0.3 % (0.0-1.0); %Lymphocytes 25.9 % (21.0-51.0); %Monocytes 5.8 % (0.0-10.0); %Neutrophils 66.9 % (42.0-75.0); Hematocrit 36.6 % (36.0-47.0); Hemoglobin 11.7 g/dL (12.0-16.0); Mean Corpuscular Volume 81.3 fL (78.0-98.0); Mean Platelet Volume 11.8 fL (7.4-10.4); Platelet Count 194 10x3/uL (130-400); RBC Distribution Width 15.5 % (11.5-14.5)
[2024-04-10 19:39] LABS: ALT (SGPT) 43 U/L (8-55); AST (SGOT) 34 U/L (5-34); Albumin 4.1 g/dL (3.4-4.8); Alkaline Phosphatase 131 U/L (40-110); Anion Gap 11 mmol/L (10-20); BUN (Urea Nitrogen) 22 mg/dL (9.8-20.1); Bilirubin, Total 0.4 mg/dL (0.2-1.2); Calc. Creatinine Clearance 0 mL/min (70-130); Carbon Dioxide 24 mmol/L (23-31); Chloride 103 mmol/L (98-107); Estimated GFR 50; Glucose 184 mg/dL (83-110); Lipase 33 U/L (8-78); Potassium 4.3 mmol/L (3.5-5.1); Protein, Total 8.1 g/dL (5.8-8.1); Sodium 134 mmol/L (136-145)
[2024-04-10 19:45] LABS: Troponin I Less than 0.010 ng/mL (< 0.028)
[2024-04-10 21:49] LABS: Bacteria/HPF None Seen HPF (None Seen); Bilirubin Negative (Negative); Blood, Urine Negative (Negative); CAUTI Indications for Culture Dysuria,urgency,freq; Clarity Clear (Clear); Glucose, Urine (Dipstick) Normal (Negative); Ketone, Urine Negative (Negative); Leukocyte Negative Leu/uL (Negative); Nitrite Negative (Negative); Protein, Urine (Dipstick) Negative (Neg-Trace); RBC/HPF 0-3 HPF (0-3); Squamous Epithelial 0-3 HPF (0-3); Urobilinogen Normal mg/dL (Less than 2); WBC/HPF 0-3 HPF (0-3); pH, Urine 5.5 (5.0-9.0)
[2024-04-10 21:50] LABS: Specific Gravity, Urine Greater than 1.060 (1.002-1.036)
[2024-04-10 21:51] LABS: Urine Culture Reflex No No
== END 2024-04-10 22:10 | disposition home or self-care (01) ==
LOC: ERS 18:32
DX: R05.1 Acute cough (principal); E11.9 Type 2 diabetes mellitus without complications; I10 Essential (primary) hypertension; E03.9 Hypothyroidism, unspecified; Z79.899 Other long term (current) drug therapy; Z79.84 Long term (current) use of oral hypoglycemic drugs
CPT/HCPCS: 71046; 74177; 80053; 81001; 83605; 83690; 84484; 85025; 87040; 87428; 93005; 96374; 99284; J1885; Q9967; 36415

== ENCOUNTER 2025-04-27 20:38 | Emergency (ER) | payer OTHER ==
[2025-04-27 21:39] LABS: ALT (SGPT) 23 U/L (Less than 34); AST (SGOT) 25 U/L (11-34); Albumin 3.9 g/dL (3.1-4.5); Alkaline Phosphatase 93 U/L (40-110); Anion Gap 15 mmol/L (10-20); BUN (Urea Nitrogen) 20 mg/dL (9.8-20.1); Bilirubin, Total 0.3 mg/dL (0.3-1.2); Calc. Creatinine Clearance 0 mL/min (70-130); Calcium 8.8 mg/dL (7.8-10.44); Carbon Dioxide 20 mmol/L (23-31); Chloride 108 mmol/L (98-107); Globulin 3.6 g/dL (2.4-3.5); Glucose 88 mg/dL (83-110); Lipase 27 U/L (8-78); Magnesium 1.3 mg/dL (1.6-2.6); Potassium 4.2 mmol/L (3.5-5.1); Sodium 139 mmol/L (136-145)
[2025-04-27 21:46] LABS: INR-International Normal Ratio 1.1; PTT 30.3 sec (22.9-36.1); Prothrombin Time 14.2 sec (12.0-14.7)
[2025-04-27 21:50] LABS: #Basophils 0.06 10x3/uL (0.0-0.2); #Eosinophils 0.12 10x3/uL (0.0-0.7); #Monocytes 0.61 10x3/uL (0.11-0.59); #Neutrophils 7.31 10x3/uL (1.40-6.50); %Basophils 0.5 % (0.0-1.0); %Eosinophils 1.0 % (0.0-10.0); %Lymphocytes 32.2 % (21.0-51.0); %Monocytes 5.1 % (0.0-10.0); %Neutrophils 60.9 % (42.0-75.0); Hematocrit 35.6 % (36.0-47.0); Hemoglobin 10.6 g/dL (12.0-16.0); Mean Corpuscular Hemoglobin 23.4 pg (27.0-31.0); Mean Corpuscular Volume 78.6 fL (78.0-98.0); Platelet Count 245 10x3/uL (130-400); Red Blood Cell (RBC) Count 4.53 mill/uL (4.20-5.40); White Blood Cell (WBC) Count 11.99 10x3/uL (4.8-10.8)
[2025-04-27] MEDS ORDERED: diphenhydrAMINE 50 MG/ML VIAL ONE (22:36)
[2025-04-27] MEDS ORDERED: Acetaminophen 500 MG TAB ONE (22:36)
[2025-04-27] MEDS ORDERED: Prochlorperazine 10 MG/2 ML VIAL ONE (22:37)
[2025-04-28] MEDS ORDERED: Magnesium 2 GM/50 ML BAG (IN WATER) ONE (00:08)
== END 2025-04-28 00:43 | disposition home or self-care (01) ==
LOC: ERS 20:38
DX: R42 Dizziness and giddiness (principal); E11.9 Type 2 diabetes mellitus without complications; I10 Essential (primary) hypertension; R29.700 NIHSS score 0
CPT/HCPCS: 70496; 70498; 74177; 83690; 83735; 84439; 84484; 85610; 85730; J0780; J1200; J3475; Q9967; 36415; 80053; 84443; 85025; 96365; 96367; 96375